=== PATIENT | female | born 1950 | race Caucasian/White ===

== ENCOUNTER 2017-03-22 14:52 | Inpatient (IN) | payer MEDICARE ==
[2017-03-22] MEDS ORDERED: NS 0.9% 1000 ML* 1,000 ML IV ONE ×2 (16:03→18:38)
--- NOTE | 2017-03-22 16:36 | RAD ---
Indication: COPD, weakness. 2 views of the chest are reviewed with previous exam dated March 13, 2015. Cardiomegaly is noted. Airspace disease in the left lower lobe is noted. Right lung field is clear. IMPRESSION: Findings consistent with left lower lobe pneumonia. Right lung field is clear.
--- NOTE | 2017-03-22 16:37 | RAD ---
Indication: Weakness. CT of the brain was performed without IV contrast. Ventricular structures are midline. No midline shift is noted. The extra-axial spaces are unremarkable. There is no evidence of intracranial mass or hemorrhage. No other high or low density lesions are identified. Mastoid air cells and paranasal sinuses are unremarkable. IMPRESSION: No intracranial mass or hemorrhage is noted.
[2017-03-22] MEDS ORDERED: Levofloxacin 750 MG IVPREMIX(* 750 MG/150 ML BAG IVPB ONE (17:02)
[2017-03-22 17:24] LABS: Hematocrit 56 % (35-47); Hemoglobin 17.6 g/dl (12.0-16.0); Mean Corpuscular HGB Conc 32 g/dl (31-36); Mean Corpuscular Hemoglobin 28 pg (27-31); Mean Corpuscular Volume 87 fL (80-97); Red Blood Count 6.38 10^6/ul (4.0-5.4); Red Cell Distribution Width 17 % (10.5-15); White Blood Count 14.3 10^3/ul (3.5-10.8)
[2017-03-22 17:33] LABS: Comments Flag Yes
[2017-03-22 17:34] LABS: ALT 11 U/L (7-52); AST 23 U/L (13-39); Add Diff/Slide Review? Slide Review Added; Albumin 3.7 g/dL (3.2-5.2); Alkaline Phosphatase 71 U/L (34-104); Anion Gap 4 mmol/L (2-11); BUN/Creatinine Ratio 23.8 (8-20); Blood Urea Nitrogen 19 mg/dL (6-24); CO2 Carbon Dioxide 32 mmol/L (22-32); Calcium 8.7 mg/dL (8.6-10.3); Chloride 101 mmol/L (101-111); EGFR African American 92.3 (>60); EGFR Non-African American 71.8 (>60); Globulin 2.9 g/dL (2-4); Glucose 84 mg/dL (70-100); Potassium 4.2 mmol/L (3.5-5.0); Sodium 137 mmol/L (133-145); Total Protein 6.6 g/dL (6.4-8.9)
[2017-03-22 17:36] LABS: Troponin I 0.02 ng/mL (<0.04)
[2017-03-22 17:52] LABS: Alcohol < 10 mg/dL (<10)
[2017-03-22 18:17] LABS: Neutrophil % 86 % (38-83); Reactive Lymph % 5 % (0-6)
[2017-03-22 18:18] LABS: Platelet Morphology Large; RBC Morphology Normal (Normal)
[2017-03-22] MEDS ORDERED: Albuterol 2.5 MG/3 ML NEB.SOL* (0.083%) INH PRN (18:44)
[2017-03-22] MEDS ORDERED: NS 0.9% 1000 ML* 2,000 ML IV ONE (18:44)
[2017-03-22] MEDS ORDERED: Ondansetron INJ* 2 MG/ML VIAL IV PRN (18:44)
[2017-03-22] MEDS ORDERED: Acetaminophen TAB* 325 MG PO PRN (18:44)
[2017-03-22] MEDS ORDERED: Dextrose 50% Syringe 50 ML* 25 GM/50 ML SYRINGE IV PUSH PRN (18:44)
[2017-03-22] MEDS ORDERED: NS 0.9% 1000 ML* 1,000 ML IV SCH (18:45)
[2017-03-22 19:15] LABS: FIO2 40
[2017-03-22] MEDS: Albuterol/Ipratropium NEB.SOL* Albuterol 2.5 MG/Ipratropium 0.5 MG 3 ML INH SCH ×2 (19:16→23:55)
[2017-03-22 19:24] LABS: PCO2 Arterial 77 mmHg (35-45)
[2017-03-22] MEDS: methylPREDNISolone 125 MG* 2 ML VIAL IV SCH (20:11)
[2017-03-22 21:20] LABS: Urine Bacteria 2+ (Absent); Urine Bilirubin Negative (Negative); Urine Glucose Negative (Negative); Urine Nitrite Negative (Negative)
[2017-03-22 21:31] LABS: Benzodiazepine Urine Screen None Detected (None Detect)
[2017-03-22] MEDS: Ropinirole TAB* 0.5 MG TAB PO SCH (21:36)
[2017-03-22] MEDS: Atorvastatin* 10 MG TAB PO SCH (21:36)
[2017-03-22] MEDS: Nystatin OINT* 15 GM TOPICAL SCH (21:36)
[2017-03-22] MEDS: Heparin VIAL(*) 5000 UNITS/ML VIAL (FIVE THOUSAND) SUBCUT SCH (21:37)
[2017-03-22 22:47] LABS: EPAP 8; FIO2 60; IPAP 14
[2017-03-22 22:51] LABS: PCO2 Arterial 71 mmHg (35-45)
[2017-03-22] MEDS: Mometasone/Formoter 200/5 MDI INH SCH (23:55)
--- NOTE | 2017-03-23 00:05 | HP ---
CC: Dr. Murphy * HISTORY AND PHYSICAL: DATE OF ADMISSION: 03/22/17 PRIMARY CARE PROVIDER: Dr. Murphy. ATTENDING PHYSICIAN WHILE IN THE HOSPITAL: Brandie Gutierrez DO * (report dictated by Dalton Borrego NP). CHIEF COMPLAINTS: 1. Shortness of breath. 2. Drowsiness. 3. Altered mental status. HISTORY OF PRESENT ILLNESS: Ms. Morris is a 66-year-old female patient. She carries a history of chronic back pain, restless leg syndrome, hypertension, hyperlipidemia, diabetes, COPD, cervical cancer and a history of an CT in the past. She comes in to the ED today stating that over the last 2 days, she has been just feeling more weak. States when she stands up, her legs are just being giving out. She has been feeling drowsy, feeling tired, she has had a cough. She states sometimes it has been hurting when she breathes. She has had some increasing shortness of breath. She is unclear if she has had any fevers or chills. She denies any change in medications. She has been taking her meds as prescribed. She denies that the cough has been productive. The family was concerned and the patient was concerned and they came in to the ER today for evaluation. There has been no recent changes to medications. There has been no reports of weakness to one side, facial drooping, trouble with speech. She has been feeling really tired and weak. She was evaluated by Dr. Plata and it was found that on x-ray, there was concern for pneumonia. She appeared to have an elevated white count, appeared to be dehydrated. We were asked to evaluate for admission. PAST MEDICAL HISTORY: Significant for: 1. Chronic back pain. 2. Restless leg syndrome. 3. Hypertension. 4. Hyperlipidemia. 5. Diabetes. 6. COPD. 7. Cervical cancer. 8. History of CT. PAST SURGICAL HISTORY: 1. She has had a lumbar spine surgery. 2. Cervical diskectomy. 3. x3. 4. Hysterectomy. HOME MEDICATIONS: Include: 1. Zanaflex 2 mg p.o. 4 times a day. 2. Requip 1 mg p.o. daily. 3. Oxycodone 5 mg every 4 to 6 hours as needed. 4. Glucophage 500 mg p.o. b.i.d. 5. Norvasc 5 mg daily. 6. Zocor 20 mg at bedtime. 7. Requip 0.5 mg p.o. t.i.d. 8. Lyrica 150 mg t.i.d. 9. Lisinopril 20 mg daily. 10. Vitamin D 2000 units daily. 11. Aspirin 81 mg daily. 12. DuoNeb 1 neb inhaled 4 times a day. ALLERGIES TO MEDICATIONS: Include LATEX and PENICILLIN. FAMILY HISTORY: Father had a history of COPD. She states to her knowledge, her mother was healthy, passed of old age. SOCIAL HISTORY: She is a half a pack a day smoker. She smoked for about 50 years. She does not drink alcohol. Surrogate decision maker is her daughter. REVIEW OF SYSTEMS: There is no documented fever. Denied any significant weight change. There was no double vision. Denied having any ear discharge. No rhinorrhea. No sore throat, no thyroid enlargement. Denied any chest pain at this point. She does state it sometimes hurts when she takes a deep breath. She does state that she has been feeling little bit more short of breath. Denies having any abdominal pain. Denies having any nausea or vomiting. No dysuria, no frequency. There has been no seizure. No loss of consciousness. No pruritus and no skin ulcerations. Review of 14 systems completed, all others negative. PHYSICAL EXAMINATION GENERAL: At this time, Ms. Morris is a 66-year-old female patient. She is morbidly obese. She is sitting on the ER stretcher. She does not appear to be in any acute distress. VITAL SIGNS: Blood pressure 107/87, pulse 84, respirations were noted to be 16 , her O2 sat was 89%; but on 6 L, she is hovering right around between 93% and 92%. HEENT: Head: Atraumatic, normocephalic. Eyes: EOMs intact. Sclerae were anicteric. Pupils are equal and reactive to light. Throat: Oral mucosa appears to be dry. No oropharyngeal erythema. NECK: Supple. LUNGS: Diminished throughout. She had some rhonchi in the upper lobe. Equal diaphragmatic expansion. HEART: Sounds S1, S2. Regular rate and rhythm. No murmurs, rubs, or gallops. ABDOMEN: Soft, flat, nontender. Bowel sounds present. EXTREMITIES: Pulses 2+ throughout. No peripheral edema. She had 5/5 strength. NEUROLOGIC: She will awaken to her name. She is drowsy. She falls back to sleep quickly. Her speech was clear. She is awake. She knows she is in the hospital. She knows the month and she knows her name. Her biochemical engineer were equal. Tongue was midline. She had no facial drooping. She had no gross obvious focal deficits. SKIN: Intact. DIAGNOSTIC STUDIES/LAB DATA: Revealed WBC of 14.3, RBC of 6.38, hemoglobin 17.6, hematocrit 56, and platelet count 148. INR 0.97. Sodium 137, potassium 4.2, chloride of 101, bicarb 32, BUN 19, creatinine 0.80. Glucose 84, lactic 1.3, calcium 8.7. Total bili 0.5, AST 23, ALT 11, alk phos 71. Troponin 0.02. Albumin 3.7. Toxicology negative. The patient did have a brain CT, showed no intracranial mass or hemorrhage is evident. She had a chest x-ray today. Under my impression, she did have a significant pneumonia on the left side. Radiology read it as findings consistent with left lower lobe pneumonia. Right lung field clear. EKG obtained today shows a sinus rhythm, rate of 78. No ST elevations or T- wave inversions. Old medical records were reviewed. ASSESSMENT AND PLAN: Ms. Morris is a 66-year-old female patient coming in to the ER today with complaints of cough, complaints of weakness, on evaluation found to appear to have pneumonia. She will be admitted under inpatient status for: 1. Sepsis secondary to pneumonia. At this point, I will check a flu swab. We will get legionella antigen and strep pneumo antigen if possible. We will go ahead and put her on nebs standing. I will place her on p.r.n. nebs as well as steroids. I did place her on Dulera in addition to this. I will order flutter valve and we will continue to follow her closely and put her on Levaquin. We did get blood cultures. I suspect the altered mental status is related to the pneumonia, but I would like to check an ABG as well to make sure she is ventilating appropriately. Again, she got 2 L of fluids here in the ED. I will continue maintenance fluids. She did appear to be dehydrated on exam. We will continue to follow. 2. Chronic pain. I am holding her medications as she is fairly drowsy on my exam today and she is falling asleep quite easily. We will follow. 3. Restless legs. We will continue her Requip. 4. Hypertension. Holding her meds in the setting of acute illness. Blood pressures have been on the soft side. We can restart these when able. 5. Hyperlipidemia. Continue statin therapy. 6. Diabetes. Lispro sliding scale. 7. Chronic obstructive pulmonary disease with exacerbation. She will be on nebs, steroids, pulmonary toileting. 8. Cervical cancer. Follow with the primary. 9. History of myocardial infarction. Continue statin and aspirin. 10. Code status. She is a DNR with trial of intubation. TIME SPENT: Time spent on the admission was approximately 70 minutes, greater than half the time was spent [id number] with the patient obtaining my history and physical, other half time was spent going over the plan of care and implementing plan of care. I did discuss the plan of care with my attending, Dr. Gutierrez, she is in agreement. DALTON BORREGO, FAVIOLA [id number]/CPS #: [id number] SHEREEN
[2017-03-23] MEDS: Albuterol/Ipratropium NEB.SOL* Albuterol 2.5 MG/Ipratropium 0.5 MG 3 ML INH SCH ×6 (06:00→23:50)
[2017-03-23] MEDS: Heparin VIAL(*) 5000 UNITS/ML VIAL (FIVE THOUSAND) SUBCUT SCH ×3 (06:21→20:35)
[2017-03-23] MEDS: methylPREDNISolone 125 MG* 2 ML VIAL IV SCH ×2 (06:21→20:33)
[2017-03-23 07:03] LABS: Blood Urea Nitrogen 14 mg/dL (6-24); CO2 Carbon Dioxide 30 mmol/L (22-32); Calcium 8.4 mg/dL (8.6-10.3); Chloride 105 mmol/L (101-111); EGFR African American 139.3 (>60); EGFR Non-African American 108.3 (>60); Glucose 127 mg/dL (70-100); Sodium 138 mmol/L (133-145)
[2017-03-23 07:06] LABS: Anion Gap 3 mmol/L (2-11)
[2017-03-23 07:09] LABS: Hematocrit 55 % (35-47); Hemoglobin 17.2 g/dl (12.0-16.0); Mean Corpuscular HGB Conc 31 g/dl (31-36); Mean Corpuscular Hemoglobin 27 pg (27-31); Mean Corpuscular Volume 86 fL (80-97); Mean Platelet Volume 10 um3 (7.4-10.4); Red Blood Count 6.38 10^6/ul (4.0-5.4); Red Cell Distribution Width 17 % (10.5-15)
[2017-03-23 07:10] LABS: Add Diff/Slide Review? Slide Review Added; Comments Flag Yes
[2017-03-23] MEDS: Insulin LISPRO* 1 UNITS UNIT SUBCUT SCH ×3 (08:10→18:18)
[2017-03-23] MEDS: Nystatin OINT* 15 GM TOPICAL SCH ×4 (08:11→20:49)
--- NOTE | 2017-03-23 08:41 | ED ---
Morro Giordano Angela, scribed for Yobany Plata MD on 03/22/17 at 1604 . Adult Trauma - HPI Summary HPI Summary: This pt is a 66 y/o female presenting to [facility] c/o recent frequent falls and weakness x2 weeks, fall today. Pt reports that over the past 2 weeks pt has fallen about 6 times. Pt states that today she fell and she hit her face on a coffee table. Pt denies LOC or syncope. She states that over the last several days, pt has noticed she has been dropping everything. Pt takes oxycodone TID for her chronic back pain. Pt notes she has a productive cough. Pt denies fever , chills, chest pain, SOB, dysuria, diarrhea, constipation. - History of Current Complaint Chief Complaint: EDWeakness Stated Complaint: WEAKNESS Time Seen by Provider: 03/22/17 15:08 Hx Obtained From: Patient Hx Last Menstrual Period: Years ago. Mechanism of Injury: Fall Ambulatory at the Scene: Yes Loss of Consciousness: no loss of consciousness Pain Intensity: 0 Location: Other - face Character: Aching Aggravating Factor(s): Nothing Alleviating Factor(s): Nothing Associated Signs & Symptoms: Positive: Cough, Numbness/Weakness - generalized weakness, Other: - chronic back pain. Negative: SOB, Chest Pain, Abdominal Pain , Fever, Nausea/Vomiting, Loss of Consciousness - Additional Pertinent History Primary Care Physician: [id number] - Allergy/Home Medications Allergies/Adverse Reactions: Allergies Allergy/AdvReac Type Severity Reaction Status Date / Time Latex Allergy Intermediate hands Verified 05/03/16 12:26 swell up Penicillins Allergy Intermediate Hives Verified 05/03/16 12:26 Home Medications: Home Medications Cholecalciferol TAB* [Vitamin D TAB*] 2,000 units PO DAILY 03/22/17 [History Confirmed 03/22/17] Pregabalin CAP(*) [Lyrica CAP(*)] 150 mg PO TID 03/22/17 [History Confirmed ] Ropinirole TAB* [Requip TAB*] 0.5 mg PO TID 03/22/17 [History Confirmed 03/22/17 ] Simvastatin TAB(NF) [Zocor(NF)] 20 mg PO BEDTIME 03/22/17 [History Confirmed ] rOPINIRole TAB* [Requip TAB*] 1 mg PO DAILY 03/22/17 [History Confirmed 03/22/17 ] tiZANidine TAB* [Zanaflex TAB*] 2 mg PO QID 03/22/17 [History Confirmed 03/22/17 ] PMH/Surg Hx/FS Hx/Imm Hx Endocrine/Hematology History: Reports: Hx Anticoagulant Therapy - ASA, Hx Diabetes - TYPE 2 Denies: Hx Thyroid Disease Cardiovascular History: Reports: Hx Hypercholesterolemia, Hx Hypertension, Other Cardiovascular Problems/Disorders - CHOLESTEROL CONTROL WITH MED Denies: Hx Congestive Heart Failure, Hx Deep Vein Thrombosis, Hx Myocardial Infarction, Hx Pacemaker/ICD Respiratory History: Reports: Hx Asthma, Hx Chronic Obstructive Pulmonary Disease (COPD), Hx Pneumonia - March 2015. , Other Respiratory Problems/ Disorders - HX OF PNEUMONIA 03/2015 Denies: Hx Lung Cancer GI History: Reports: Other GI Disorders - HX OF POLYPS Denies: Hx Gall Bladder Disease, Hx Gastrointestinal Bleed, Hx Ulcer, Hx Urosepsis History: Denies: Hx Dialysis, Hx Kidney Stones, Hx Renal Disease Musculoskeletal History: Reports: Hx Arthritis - SPINE,, Hx Back Problems - chronic back pain, Other Musculoskeletal History - BACK SURGERY X 3, CERVICAL X 1 Sensory History: Reports: Hx Contacts or Glasses - GLASSES Denies: Hx Hearing Aid Opthamlomology History: Reports: Hx Contacts or Glasses - GLASSES Neurological History: Reports: Other Neuro Impairments/Disorders - RESTLESS LEG SYNDROME Denies: Hx Dementia, Hx Migraine, Hx Seizures, Hx Transient Ischemic Attacks (TIA) Psychiatric History: Reports: Hx Anxiety - REGARDING SURGERY - AND NOT WAKING UP Denies: Hx Depression, Hx Panic Disorder, Hx Schizophrenia, Hx Bipolar Disorder - Cancer History Cancer Type, Location and Year: CERVICAL CA 1979 Hx Chemotherapy: No Hx Radiation Therapy: No - Surgical History Surgery Procedure, Year, and Place: 1979 OOPHORECTOMY (UNSURE WHICH ONE), [facility]. 1987 HYSTERECTOMY, [facility]. 1968, 1970, 1972 3 CSECTIONS, [facility]. 1986, 2001, 2014 3 BACK SURGERIES, [facility]. 2007 ACDF C5-7, [facility], Hx Anesthesia Reactions: No Infectious Disease History: No Infectious Disease History: Denies: Traveled Outside the [place] in Last 30 Days - Family History Family History: father - heart disease, mother - [place] - Social History Alcohol Use: None Substance Use Type: Reports: None, Prescribed Smoking Status (MU): Light Every Day Tobacco Smoker Type: Cigarettes Amount Used/How Often: 5 - 6 CIG/DAY FOR APPROX 44 YEARS Length of Time of Smoking/Using Tobacco: 44 YEARS Have You Smoked in the Last Year: Yes Review of Systems Positive: Other - fall. Negative: Fever, Chills Negative: Chest Pain Positive: Cough - productive. Negative: Shortness Of Breath Negative: Diarrhea, Other - constipation Negative: dysuria Positive: Other - chronic back pain Positive: Weakness. Negative: Syncope - or LOC All Other Systems Reviewed And Are Negative: Yes Physical Exam - Summary Physical Exam Summary: VITAL SIGNS: Reviewed. GENERAL: Patient is a well-developed and nourished female who is lying comfortable in the stretcher. Patient is not in any acute respiratory distress. Pt is able to answer questions properly when verbally stimulated. Pt is currently on oxygen and looks dehydrated. HEAD AND FACE: No signs of trauma. No ecchymosis, hematomas or skull depressions. No sinus tenderness. EYES: PERRLA, EOMI x 2, No injected conjunctiva, no nystagmus. EARS: Hearing grossly intact. Ear canals and tympanic membranes are within normal limits. MOUTH: Oropharynx within normal limits. NECK: Supple, trachea is midline, no adenopathy, no JVD, no carotid bruit, no c- spine tenderness, neck with full ROM. CHEST: Symmetric, no tenderness at palpation LUNGS: Clear to auscultation bilaterally. No wheezing or crackles. CVS: Regular rate and rhythm, S1 and S2 present, no murmurs or gallops appreciated. ABDOMEN: Soft, non-tender. No signs of distention. No rebound no guarding, and no masses palpated. Bowel sounds are normal. EXTREMITIES: FROM in all major joints, no edema, no cyanosis or clubbing. NEURO: Alert and oriented x 3. No acute neurological deficits. Speech is normal and follows commands. SKIN: Dry and warm GCS: 15 Triage Information Reviewed: Yes Vital Signs On Initial Exam: Initial Vitals Temp Pulse Resp BP Pulse Ox 98.7 F 94 22 115/55 90 03/22/17 15:10 03/22/17 15:10 03/22/17 15:10 03/22/17 15:10 03/22/17 15:10 Vital Signs Reviewed: Yes - [place] Coma Scale Coma Scale Total: 15 Diagnostics - Vital Signs Vital Signs Temp Pulse Resp BP Pulse Ox 03/22/17 15:15 95 93 03/22/17 15:14 115/55 03/22/17 15:10 98.7 F 94 22 115/55 90 - Laboratory Lab Results: Lab Results 03/22/17 03/22/17 03/22/17 Range/Units 17:05 17:05 17:05 WBC 14.3 H (3.5-10.8) 10^3/ul RBC 6.38 H (4.0-5.4) 10^6/ul Hgb 17.6 H (12.0-16.0) g/dl Hct 56 H (35-47) % MCV 87 (80-97) fL MCH 28 (27-31) pg MCHC 32 (31-36) g/dl RDW 17 H (10.5-15) % Plt Count 145 L (150-450) 10^3/ul MPV Not Reportable Neut % (Auto) 79.8 (38-83) % Lymph % (Auto) 11.1 L (25-47) % Nobles % (Auto) 8.6 (1-9) % Eos % (Auto) 0.2 (0-6) % Baso % (Auto) 0.3 (0-2) % Absolute Neuts (auto) 11.4 H (1.5-7.7) 10^3/ul Absolute Lymphs (auto) 1.6 (1.0-4.8) 10^3/ul Absolute Monos (auto) 1.2 H (0-0.8) 10^3/ul Absolute Eos (auto) 0 (0-0.6) 10^3/ul Absolute Basos (auto) 0 (0-0.2) 10^3/ul Absolute Nucleated RBC 0.04 10^3/ul Neutrophils % 86 H (38-83) % Lymphocytes % 4 L (25-47) % Reactive Lymphs % 5 (0-6) % Monocytes % 5 (0-13) % Nucleated RBC % 0.3 Platelet Morphology Large Normal RBC Morphology Normal (Normal) INR (Anticoag Therapy) 0.97 (0.89-1.11) Sodium 137 (133-145) mmol/L Potassium 4.2 (3.5-5.0) mmol/L Chloride 101 (101-111) mmol/L Carbon Dioxide 32 (22-32) mmol/L Anion Gap 4 (2-11) mmol/L BUN 19 (6-24) mg/dL Creatinine 0.80 (0.51-0.95) mg/dL Est GFR ( Amer) 92.3 (>60) Est GFR (Non-Af Amer) 71.8 (>60) BUN/Creatinine Ratio 23.8 H (8-20) Glucose 84 (70-100) mg/dL Lactic Acid (0.5-2.0) mmol/L Calcium 8.7 (8.6-10.3) mg/dL Total Bilirubin 0.50 (0.2-1.0) mg/dL AST 23 (13-39) U/L ALT 11 (7-52) U/L Alkaline Phosphatase 71 (34-104) U/L Troponin I 0.02 (<0.04) ng/mL Total Protein 6.6 (6.4-8.9) g/dL Albumin 3.7 (3.2-5.2) g/dL Globulin 2.9 (2-4) g/dL Albumin/Globulin Ratio 1.3 (1-3) Serum Alcohol < 10 (<10) mg/dL 03/22/17 Range/Units 17:05 WBC (3.5-10.8) 10^3/ul RBC (4.0-5.4) 10^6/ul Hgb (12.0-16.0) g/dl Hct (35-47) % MCV (80-97) fL MCH (27-31) pg MCHC (31-36) g/dl RDW (10.5-15) % Plt Count (150-450) 10^3/ul MPV Neut % (Auto) (38-83) % Lymph % (Auto) (25-47) % Nobles % (Auto) (1-9) % Eos % (Auto) (0-6) % Baso % (Auto) (0-2) % Absolute Neuts (auto) (1.5-7.7) 10^3/ul Absolute Lymphs (auto) (1.0-4.8) 10^3/ul Absolute Monos (auto) (0-0.8) 10^3/ul Absolute Eos (auto) (0-0.6) 10^3/ul Absolute Basos (auto) (0-0.2) 10^3/ul Absolute Nucleated RBC 10^3/ul Neutrophils % (38-83) % Lymphocytes % (25-47) % Reactive Lymphs % (0-6) % Monocytes % (0-13) % Nucleated RBC % Platelet Morphology Normal RBC Morphology (Normal) INR (Anticoag Therapy) (0.89-1.11) Sodium (133-145) mmol/L Potassium (3.5-5.0) mmol/L Chloride (101-111) mmol/L Carbon Dioxide (22-32) mmol/L Anion Gap (2-11) mmol/L BUN (6-24) mg/dL Creatinine (0.51-0.95) mg/dL Est GFR ( Amer) (>60) Est GFR (Non-Af Amer) (>60) BUN/Creatinine Ratio (8-20) Glucose (70-100) mg/dL Lactic Acid 1.3 (0.5-2.0) mmol/L Calcium (8.6-10.3) mg/dL Total Bilirubin (0.2-1.0) mg/dL AST (13-39) U/L ALT (7-52) U/L Alkaline Phosphatase (34-104) U/L Troponin I (<0.04) ng/mL Total Protein (6.4-8.9) g/dL Albumin (3.2-5.2) g/dL Globulin (2-4) g/dL Albumin/Globulin Ratio (1-3) Serum Alcohol (<10) mg/dL Result Diagrams: 03/23/17 06:34 03/23/17 06:34 Lab Statement: Any lab studies that have been ordered have been reviewed, and results considered in the medical decision making process. - Radiology Chest XR Xray Interpretation: Positive (See Comments) - IMPRESSION: findings consistent with left lower lobe pneumonia. Right lung field is clear. ED physician has reviewed this radiology report and agrees. Radiology Interpretation Completed By: Radiologist - CT Brain CT CT Interpretation: No Acute Changes - IMPRESSION: No intracranial mass or hemorrhage is noted. ED physician has reviewed this radiology report and agrees. CT Interpretation Completed By: Radiologist - EKG 1632 Cardiac Rate: NL - 78 bpm EKG Rhythm: Sinus Rhythm EKG Interpretation: No ST elevation EKG Comparison: No Significant Change - from prior EKG on 03/13/15. Adult Trauma Course/Dx - Course Assessment/Plan: This pt is a 66 y/o female presenting to [facility] c/o recent frequent falls and weakness x2 weeks, fall today. Pt reports that over the past 2 weeks pt has fallen about 6 times. Pt states that today she fell and she hit her face on a coffee table. Pt denies LOC or syncope. She states that over the last several days, pt has noticed she has been dropping everything. Pt takes oxycodone TID for her chronic back pain. Pt notes she has a productive cough. Pt denies fever, chills, chest pain, SOB, dysuria, diarrhea, constipation. Test results show WBC of 14.3, H&H of 17.6/56. CMP within normal limits. Chest XR shows findings consistent with left lower lobe pneumonia. Right lung field is clear. Head CT reveals no intracranial mass or hemorrhage is noted. In the ED course, the pt was given IV fluids since she seems dehydrated. She was started on Levaquin for pneumonia. I believe she has lethargy since she is taking too many pain medications. However, at this point she is unable to give us urine as she is dehydrated. I discussed the case with Dr. Kovacs, who accepted the pt for admission. Pt is hemodynamically stable, alert and oriented x3. - Diagnoses Provider Diagnoses: Pneumonia, Altered mental status, Dehydration - Physician Notifications Discussed Care Of Patient With: Gela Kovacs Time Discussed With Above Provider: 18:12 Instructed by Provider To: Other - I discussed pt care with Dr. Kovacs. She has agreed to admit the pt. Discharge - Discharge Plan Condition: Stable Disposition: ADMITTED TO [facility] documentation as recorded by the Morro sanchez Angela accurately reflects the service I personally performed and the decisions made by me, Yobany Plata MD.
[2017-03-23] MEDS: Aspirin EC Low Dose* 81 MG TAB.EC PO SCH (08:56)
[2017-03-23] MEDS: Ropinirole TAB* 0.5 MG TAB PO SCH ×3 (09:31→20:48)
[2017-03-23] MEDS: Mometasone/Formoter 200/5 MDI INH SCH ×3 (10:43→20:01)
[2017-03-23] MEDS ORDERED: oxyCODONE TAB* 5 MG TAB PO SCH (11:00)
[2017-03-23] MEDS: oxyCODONE TAB* 5 MG TAB PO PRN ×2 (12:00→18:24)
--- NOTE | 2017-03-23 17:54 | PN ---
Subjective Date of Service: 03/23/17 Interval History: Pt did not like bipap overnight. Hernandez was placed for difficulty urinating and bladder scan ~200cc. Down to 3.5L. Transferring to floor. Objective Active Medications: Acetaminophen (Tylenol Tab*) 650 mg PO Q4H PRN PRN Reason: FEVER/PAIN Albuterol (Ventolin 2.5 Mg/3 Ml Neb.Analilia*) 2.5 mg INH Q2H PRN PRN Reason: SOB/WHEEZING Albuterol/Ipratropium (Duoneb (Albuterol 2.5 Mg/Ipratropium 0.5 Mg)) 1 neb INH [id number] Last Admin: 03/23/17 15:40 Dose: Not Given Aspirin (Aspirin Ec Low Dose*) 81 mg PO QAM [facility] Last Admin: 03/23/17 08:56 Dose: 81 mg Atorvastatin Calcium (Lipitor*) 10 mg PO BEDTIME [facility] Last Admin: 03/22/17 21:36 Dose: 10 mg Dextrose (D50w Syringe 50 Ml*) 12.5 gm IV PUSH .FOR FS < 60 - SS PRN PRN Reason: FS < 60 Heparin Sodium (Porcine) (Heparin Vial(*)) 5,000 units SUBCUT Q8HR [facility] Last Admin: 03/23/17 14:16 Dose: 5,000 units Levofloxacin/Dextrose (Levaquin 750 Mg Ivpremix(*)) 750 mg in 150 mls @ 100 mls /hr IVPB Q24H [facility] Influenza Virus Vaccine (Fluarix *Quad* *) 0.5 ml IM .ONCE ONE Stop: 03/24/17 09:01 Insulin Human Lispro (Humalog*) 0 units SUBCUT AC [facility] PRN Reason: Protocol Last Admin: 03/23/17 11:59 Dose: 6 units Methylprednisolone Sodium Succinate (Solu-Medrol 125mg *) 60 mg IV Q12H [facility] Last Admin: 03/23/17 06:21 Dose: 60 mg Mometasone Furoate/Formoterol Fumar (Dulera 200/5 Mdi*) 2 puff INH BID [facility] Last Admin: 03/23/17 10:43 Dose: 2 puff Nystatin (Nystatin Oint*) 1 applic TOPICAL TID [facility] Last Admin: 03/23/17 14:09 Dose: Not Given Ondansetron HCl (Zofran Inj*) 4 mg IV Q6H PRN PRN Reason: NAUSEA Oxycodone HCl (Roxycodone Tab*) 5 mg PO Q6H PRN PRN Reason: NOT SPECIFIED Last Admin: 03/23/17 12:00 Dose: 5 mg Ropinirole HCl (Requip Tab*) 0.5 mg PO TID [facility] Last Admin: 03/23/17 14:16 Dose: 0.5 mg Vital Signs 03/22/17 03/22/17 03/22/17 18:30 19:00 19:17 Temperature Pulse Rate 85 78 86 Respiratory 20 21 Rate Blood Pressure 110/72 138/64 (mmHg) O2 Sat by Pulse 92 93 93 Oximetry 03/22/17 03/22/17 03/22/17 19:19 19:29 19:30 Temperature 98.7 F Pulse Rate 81 83 Respiratory 22 20 Rate Blood Pressure 118/41 118/41 (mmHg) O2 Sat by Pulse 93 95 95 Oximetry 03/22/17 03/22/17 03/22/17 19:45 19:56 20:00 Temperature 99 F Pulse Rate 102 98 89 Respiratory 24 20 18 Rate Blood Pressure 121/85 128/65 (mmHg) O2 Sat by Pulse 90 88 86 Oximetry 03/22/17 03/22/17 03/22/17 20:07 20:15 20:30 Temperature Pulse Rate 95 86 77 Respiratory 13 19 18 Rate Blood Pressure 109/63 115/54 (mmHg) O2 Sat by Pulse 91 92 93 Oximetry 03/22/17 03/22/17 03/22/17 20:45 21:00 21:01 Temperature Pulse Rate 83 82 82 Respiratory 15 23 24 Rate Blood Pressure 136/63 132/56 (mmHg) O2 Sat by Pulse 95 92 92 Oximetry 03/22/17 03/22/17 03/22/17 21:16 21:18 21:46 Temperature Pulse Rate 81 77 Respiratory 21 19 Rate Blood Pressure 110/69 127/58 (mmHg) O2 Sat by Pulse 91 92 94 Oximetry 03/22/17 03/22/17 03/22/17 22:00 22:01 22:15 Temperature Pulse Rate 78 81 Respiratory 22 23 22 Rate Blood Pressure 124/69 142/80 (mmHg) O2 Sat by Pulse 92 93 Oximetry 03/22/17 03/22/17 03/22/17 22:17 22:31 22:43 Temperature 99.1 F Pulse Rate 79 78 86 Respiratory 23 26 29 Rate Blood Pressure 144/76 (mmHg) O2 Sat by Pulse 92 93 92 Oximetry 03/22/17 03/22/17 03/22/17 22:46 23:00 23:01 Temperature 99.3 F 99.3 F Pulse Rate 79 76 Respiratory 13 19 18 Rate Blood Pressure 143/74 136/67 (mmHg) O2 Sat by Pulse 92 93 Oximetry 03/22/17 03/22/17 03/22/17 23:15 23:30 23:46 Temperature 99.1 F 99.1 F 99.0 F Pulse Rate 75 76 72 Respiratory 18 20 21 Rate Blood Pressure 127/73 142/70 132/71 (mmHg) O2 Sat by Pulse 93 93 93 Oximetry 03/23/17 03/23/17 03/23/17 00:00 00:16 00:30 Temperature 99.0 F 99.0 F 99.0 F Pulse Rate 79 73 74 Respiratory 21 19 23 Rate Blood Pressure 136/64 129/69 143/70 (mmHg) O2 Sat by Pulse 93 91 92 Oximetry 03/23/17 03/23/17 03/23/17 00:46 01:00 01:11 Temperature 98.8 F 99.0 F Pulse Rate 84 78 Respiratory 16 16 19 Rate Blood Pressure 147/77 125/59 (mmHg) O2 Sat by Pulse 91 93 Oximetry 03/23/17 03/23/17 03/23/17 02:00 03:00 04:00 Temperature 98.8 F 98.8 F 98.8 F Pulse Rate 73 79 76 Respiratory 18 21 24 Rate Blood Pressure 133/80 127/58 113/62 (mmHg) O2 Sat by Pulse 93 96 94 Oximetry 03/23/17 03/23/17 03/23/17 05:00 05:23 06:00 Temperature 98.8 F Pulse Rate 90 75 Respiratory 21 23 22 Rate Blood Pressure 122/55 (mmHg) O2 Sat by Pulse 97 95 Oximetry 03/23/17 03/23/17 03/23/17 06:02 07:00 07:49 Temperature 99.0 F 98.8 F Pulse Rate 88 69 Respiratory 18 23 20 Rate Blood Pressure 138/69 146/77 (mmHg) O2 Sat by Pulse 98 98 Oximetry 03/23/17 03/23/17 03/23/17 08:00 09:00 09:01 Temperature 99.0 F 99.1 F 99.1 F Pulse Rate 70 78 92 Respiratory 19 15 29 Rate Blood Pressure 155/91 (mmHg) O2 Sat by Pulse 98 89 89 Oximetry 03/23/17 03/23/17 03/23/17 10:00 10:01 10:44 Temperature 99.1 F 99.1 F Pulse Rate 88 97 70 Respiratory 13 12 20 Rate Blood Pressure 165/80 (mmHg) O2 Sat by Pulse 89 86 92 Oximetry 03/23/17 03/23/17 03/23/17 10:46 10:47 11:00 Temperature 99.3 F Pulse Rate 70 78 Respiratory 18 Rate Blood Pressure (mmHg) O2 Sat by Pulse 92 92 83 Oximetry 03/23/17 03/23/17 03/23/17 11:01 11:28 12:00 Temperature 99.3 F Pulse Rate 82 90 Respiratory 20 Rate Blood Pressure 155/70 (mmHg) O2 Sat by Pulse 84 88 Oximetry 03/23/17 03/23/17 03/23/17 12:01 12:33 13:00 Temperature 99.1 F Pulse Rate 89 72 Respiratory 19 Rate Blood Pressure 164/92 (mmHg) O2 Sat by Pulse 88 87 Oximetry 03/23/17 03/23/17 13:01 15:38 Temperature 98.5 F Pulse Rate 81 68 Respiratory 24 18 Rate Blood Pressure 126/55 140/55 (mmHg) O2 Sat by Pulse 88 88 Oximetry Oxygen Devices in Use Now: Nasal Cannula Appearance: NAD, Ears/Nose/Mouth/Throat: NL Teeth, Lips, Gums, Mucous Membranes Moist Neck: NL Appearance and Movements; NL JVP Respiratory: Symmetrical Chest Expansion and Respiratory Effort, - - slight expiraroy wheeze, no rales or rhonchi appreciated. Abdominal: NL Sounds; No Tenderness; No Distention Extremities: No Edema, No Clubbing, Cyanosis Skin: No Rash or Ulcers, No Nodules or Sclerosis Neurological: Alert and Oriented x 3 Result Diagrams: 03/23/17 06:34 03/23/17 09:27 Additional Lab and Data: Laboratory Results - last 24 hr 03/22/17 03/22/17 03/22/17 17:05 17:05 19:10 WBC RBC Hgb Hct MCV MCH MCHC RDW Plt Count 145 L MPV Not Reportable Neut % (Auto) Lymph % (Auto) [place] % (Auto) Eos % (Auto) Baso % (Auto) Absolute Neuts (auto) Absolute Lymphs (auto) Absolute Monos (auto) Absolute Eos (auto) Absolute Basos (auto) Absolute Nucleated RBC Neutrophils % 86 H Lymphocytes % 4 L Reactive Lymphs % 5 Monocytes % 5 Nucleated RBC % Platelet Morphology Large Normal RBC Morphology Normal INR (Anticoag Therapy) Patient Temperature Not Reportable ABG pH 7.25 L ABG pH (Temp Correct) Not Reportable ABG pCO2 77 H* ABG pCO2 (Temp Corrct Not Reportable ABG pO2 52 L* ABG pO2 (Temp Correct Not Reportable ABG HCO3 26.7 ABG O2 Saturation 91.5 L ABG Base Excess 3.1 H Respiration Rate Not Reportable O2 Delivery Device nasal cannula Ventilator Type Not Reportable Vent Mode Not Reportable FiO2 40 Inspiratory Time Not Reportable PEEP Not Reportable Pressure Support Not Reportable Pressure Control Not Reportable EPAP Not Reportable IPAP Not Reportable BiPAP Not Reportable Sodium Potassium Chloride Carbon Dioxide Anion Gap BUN Creatinine Est GFR ( Amer) Est GFR (Non-Af Amer) BUN/Creatinine Ratio Glucose POC Glucose (mg/dL) Lactic Acid Calcium Urine Color Urine Appearance Urine pH Ur Specific Gre[place] Urine Protein Urine Ketones Urine Blood Urine Nitrate Urine Bilirubin Urine Urobilinogen Ur Leukocyte Esterase Urine WBC (Auto) Urine RBC (Auto) Urine Bacteria Hyaline Casts Urine Glucose Urine Opiates Screen Ur Barbiturates Screen Ur Phencyclidine Scrn Ur Amphetamines Screen U Benzodiazepines Scrn Urine Cocaine Screen U Cannabinoids Screen Serum Alcohol < 10 Influenza A (Rapid) Influenza B (Rapid) 03/22/17 03/22/17 03/22/17 19:19 20:40 21:00 WBC RBC Hgb Hct MCV MCH MCHC RDW Plt Count MPV Neut % (Auto) Lymph % (Auto) [place] % (Auto) Eos % (Auto) Baso % (Auto) Absolute Neuts (auto) Absolute Lymphs (auto) Absolute Monos (auto) Absolute Eos (auto) Absolute Basos (auto) Absolute Nucleated RBC Neutrophils % Lymphocytes % Reactive Lymphs % Monocytes % Nucleated RBC % Platelet Morphology Normal RBC Morphology INR (Anticoag Therapy) Patient Temperature ABG pH ABG pH (Temp Correct) ABG pCO2 ABG pCO2 (Temp Corrct ABG pO2 ABG pO2 (Temp Correct ABG HCO3 ABG O2 Saturation ABG Base Excess Respiration Rate O2 Delivery Device Ventilator Type Vent Mode FiO2 Inspiratory Time PEEP Pressure Support Pressure Control EPAP IPAP BiPAP Sodium Potassium Chloride Carbon Dioxide Anion Gap BUN Creatinine Est GFR ( Amer) Est GFR (Non-Af Amer) BUN/Creatinine Ratio Glucose POC Glucose (mg/dL) Lactic Acid 0.9 Calcium Urine Color Urine Appearance Urine pH Ur Specific Greig Urine Protein Urine Ketones Urine Blood Urine Nitrate Urine Bilirubin Urine Urobilinogen Ur Leukocyte Esterase Urine WBC (Auto) Urine RBC (Auto) Urine Bacteria Hyaline Casts Urine Glucose Urine Opiates Screen Presumptive positive H Ur Barbiturates Screen None detected Ur Phencyclidine Scrn None detected Ur Amphetamines Screen None detected U Benzodiazepines Scrn None detected Urine Cocaine Screen None detected U Cannabinoids Screen None detected Serum Alcohol Influenza A (Rapid) Negative Influenza B (Rapid) Negative 03/22/17 03/22/17 03/23/17 21:00 22:41 06:34 WBC 12.0 H RBC 6.38 H Hgb 17.2 H Hct 55 H MCV 86 MCH 27 MCHC 31 RDW 17 H Plt Count 145 L MPV 10 Neut % (Auto) 90.1 H Lymph % (Auto) 6.5 L [place] % (Auto) 3.3 Eos % (Auto) 0 Baso % (Auto) 0.1 Absolute Neuts (auto) 10.8 H Absolute Lymphs (auto) 0.8 L Absolute Monos (auto) 0.4 Absolute Eos (auto) 0 Absolute Basos (auto) 0 Absolute Nucleated RBC 0.03 Neutrophils % Lymphocytes % Reactive Lymphs % Monocytes % Nucleated RBC % 0.2 Platelet Morphology Normal RBC Morphology INR (Anticoag Therapy) Patient Temperature Not Reportable ABG pH 7.27 L ABG pH (Temp Correct) Not Reportable ABG pCO2 71 H ABG pCO2 (Temp Corrct Not Reportable ABG pO2 57 L* ABG pO2 (Temp Correct Not Reportable ABG HCO3 26.5 ABG O2 Saturation 92.7 L ABG Base Excess 2.6 H Respiration Rate Not Reportable O2 Delivery Device bipap Ventilator Type Not Reportable Vent Mode s/t FiO2 60 Inspiratory Time Not Reportable PEEP Not Reportable Pressure Support Not Reportable Pressure Control Not Reportable EPAP 8 IPAP 14 BiPAP Not Reportable Sodium Potassium Chloride Carbon Dioxide Anion Gap BUN Creatinine Est GFR ( Amer) Est GFR (Non-Af Amer) BUN/Creatinine Ratio Glucose POC Glucose (mg/dL) Lactic Acid Calcium Urine Color Yellow Urine Appearance Clear Urine pH 5.0 Ur Specific [place] 1.016 Urine Protein 1+(30 mg/dl) H Urine Ketones Trace H Urine Blood Negative Urine Nitrate Negative Urine Bilirubin Negative Urine Urobilinogen Negative Ur Leukocyte Esterase Negative Urine WBC (Auto) Trace(0-5/hpf) Urine RBC (Auto) Absent Urine Bacteria 2+ H Hyaline Casts Present H Urine Glucose Negative Urine Opiates Screen Ur Barbiturates Screen Ur Phencyclidine Scrn Ur Amphetamines Screen U Benzodiazepines Scrn Urine Cocaine Screen U Cannabinoids Screen Serum Alcohol Influenza A (Rapid) Influenza B (Rapid) 03/23/17 03/23/17 03/23/17 06:34 06:34 07:20 WBC RBC Hgb Hct MCV MCH MCHC RDW Plt Count MPV Neut % (Auto) Lymph % (Auto) [place] % (Auto) Eos % (Auto) Baso % (Auto) Absolute Neuts (auto) Absolute Lymphs (auto) Absolute Monos (auto) Absolute Eos (auto) Absolute Basos (auto) Absolute Nucleated RBC Neutrophils % Lymphocytes % Reactive Lymphs % Monocytes % Nucleated RBC % Platelet Morphology Normal RBC Morphology INR (Anticoag Therapy) 1.00 Patient Temperature ABG pH ABG pH (Temp Correct) ABG pCO2 ABG pCO2 (Temp Corrct ABG pO2 ABG pO2 (Temp Correct ABG HCO3 ABG O2 Saturation ABG Base Excess Respiration Rate O2 Delivery Device Ventilator Type Vent Mode FiO2 Inspiratory Time PEEP Pressure Support Pressure Control EPAP IPAP BiPAP Sodium 138 Potassium TNP Chloride 105 Carbon Dioxide 30 Anion Gap 3 BUN 14 Creatinine 0.56 Est GFR ( Amer) 139.3 Est GFR (Non-Af Amer) 108.3 BUN/Creatinine Ratio 25.0 H Glucose 127 H POC Glucose (mg/dL) 133 H Lactic Acid Calcium 8.4 L Urine Color Urine Appearance Urine pH Ur Specific [place] Urine Protein Urine Ketones Urine Blood Urine Nitrate Urine Bilirubin Urine Urobilinogen Ur Leukocyte Esterase Urine WBC (Auto) Urine RBC (Auto) Urine Bacteria Hyaline Casts Urine Glucose Urine Opiates Screen Ur Barbiturates Screen Ur Phencyclidine Scrn Ur Amphetamines Screen U Benzodiazepines Scrn Urine Cocaine Screen U Cannabinoids Screen Serum Alcohol Influenza A (Rapid) Influenza B (Rapid) 03/23/17 03/23/17 03/23/17 09:27 11:18 16:30 WBC RBC Hgb Hct MCV MCH MCHC RDW Plt Count MPV Neut % (Auto) Lymph % (Auto) [place] % (Auto) Eos % (Auto) Baso % (Auto) Absolute Neuts (auto) Absolute Lymphs (auto) Absolute Monos (auto) Absolute Eos (auto) Absolute Basos (auto) Absolute Nucleated RBC Neutrophils % Lymphocytes % Reactive Lymphs % Monocytes % Nucleated RBC % Platelet Morphology Normal RBC Morphology INR (Anticoag Therapy) Patient Temperature ABG pH ABG pH (Temp Correct) ABG pCO2 ABG pCO2 (Temp Corrct ABG pO2 ABG pO2 (Temp Correct ABG HCO3 ABG O2 Saturation ABG Base Excess Respiration Rate O2 Delivery Device Ventilator Type Vent Mode FiO2 Inspiratory Time PEEP Pressure Support Pressure Control EPAP IPAP BiPAP Sodium Potassium 4.3 Chloride Carbon Dioxide Anion Gap BUN Creatinine Est GFR ( Amer) Est GFR (Non-Af Amer) BUN/Creatinine Ratio Glucose POC Glucose (mg/dL) 226 H 178 H Lactic Acid Calcium Urine Color Urine Appearance Urine pH Ur Specific Gre[place] Urine Protein Urine Ketones Urine Blood Urine Nitrate Urine Bilirubin Urine Urobilinogen Ur Leukocyte Esterase Urine WBC (Auto) Urine RBC (Auto) Urine Bacteria Hyaline Casts Urine Glucose Urine Opiates Screen Ur Barbiturates Screen Ur Phencyclidine Scrn Ur Amphetamines Screen U Benzodiazepines Scrn Urine Cocaine Screen U Cannabinoids Screen Serum Alcohol Influenza A (Rapid) Influenza B (Rapid) Microbiology and Other Data: Microbiology 03/22/17 17:45 Blood Venous Aerobic Blood Culture - Preliminary No Growth Day 1 03/22/17 17:45 Blood Venous Anaerobic Blood Culture - Preliminary No Growth Day 1 03/22/17 21:00 Urine Urine Culture - Final No Growth (<1,000 CFU/mL) 03/22/17 21:00 Urine Legionella Urinary Antigen - Final Negative Legionella 03/22/17 21:00 Urine Streptococcus pneumoniae Ag Screen - Final Negative S. pneumo Antigen 03/22/17 21:00 Nasal Nasal Screen MRSA (PCR)(YULIET) - Final Mrsa Negative 03/22/17 19:17 Nasal Influenza Types A,B Antigen (YULIET) - Final Specimen received for Influenza A/B Molecular testing Assess/Plan/Problems-Billing Assessment: 66 yo female PMH COPD with chronic nocturnal 2L O2 use, HTN, DM, ND, diastolic CHF, chronic back pain p/w feeling unwell then fell to knees despite 2 person assistance ambulating. COPD exacceration/pna. Improving with levaquin, IV steroids. Transfer to floor. Cultures negative. - Patient Problems (1) LLL pneumonia Current Visit: Yes Status: Acute Code(s): J18.1 - LOBAR PNEUMONIA, UNSPECIFIED ORGANISM SNOMED Code(s): 145120197 Comment: continue levaquin f/u cultures, so far negative. wean O2 as tolerated. (2) COPD exacerbation Current Visit: No Status: Acute Code(s): J44.1 - CHRONIC OBSTRUCTIVE PULMONARY DISEASE W (ACUTE) EXACERBATION SNOMED Code(s): 832203456 Comment: solumedrol 60 q12, transition to prednisone / nebs O2 goal 88-92% levaquin did not enjoy bipap abg respiratory acidosis, 7.27 pCo2 71 (3) Chronic pain Current Visit: No Status: Acute Code(s): G89.29 - OTHER CHRONIC PAIN SNOMED Code(s): 89230421 Comment: oxycodone 5mg q6h prn (4) Fall Current Visit: No Status: Acute Comment: continue telemonitor CT brain negative. (5) HTN (hypertension) Current Visit: No Status: Acute Code(s): I10 - ESSENTIAL (PRIMARY) HYPERTENSION SNOMED Code(s): 52681696 Comment: restart lisinopril 20mg, home amlodipine 5mg held on admission, titrate. (6) Morbid obesity Current Visit: No Status: Acute Code(s): E66.01 - MORBID (SEVERE) OBESITY DUE TO EXCESS CALORIES SNOMED Code(s): 068593835 Comment: physical therapy Uses walker and cane drives. (7) Type II diabetes mellitus Current Visit: No Status: Acute Comment: hyperglycemic after steroids. continus lispro SSI. no A1C in system. Status and Disposition: medicine inpatient. transferred to floor. Attending: Minh Forrester
[2017-03-23] MEDS ORDERED: Levofloxacin 750 MG IVPREMIX(* 750 MG/150 ML BAG IVPB SCH (18:00)
[2017-03-23] MEDS: Lisinopril TAB* 10 MG PO SCH (18:18)
[2017-03-23] MEDS: Atorvastatin* 10 MG TAB PO SCH (20:33)
[2017-03-24] MEDS: oxyCODONE TAB* 5 MG TAB PO PRN ×4 (00:48→20:41)
[2017-03-24] MEDS: Albuterol/Ipratropium NEB.SOL* Albuterol 2.5 MG/Ipratropium 0.5 MG 3 ML INH SCH ×2 (03:14→10:50)
[2017-03-24] MEDS: Morphine INJ* 2 MG/ML 1 ML SYRINGE (TWO MG - NEW SYRINGE VERSION) IV PRN ×2 (03:39→08:04)
[2017-03-24] MEDS: Heparin VIAL(*) 5000 UNITS/ML VIAL (FIVE THOUSAND) SUBCUT SCH ×3 (06:05→20:42)
[2017-03-24] MEDS: methylPREDNISolone 125 MG* 2 ML VIAL IV SCH (06:05)
[2017-03-24] MEDS: Insulin LISPRO* 1 UNITS UNIT SUBCUT SCH ×3 (08:04→17:05)
[2017-03-24] MEDS: Ropinirole TAB* 0.5 MG TAB PO SCH ×3 (08:04→20:41)
[2017-03-24] MEDS: Lisinopril TAB* 10 MG PO SCH (08:04)
[2017-03-24] MEDS: Aspirin EC Low Dose* 81 MG TAB.EC PO SCH (08:04)
[2017-03-24] MEDS: Nystatin OINT* 15 GM TOPICAL SCH ×3 (08:54→20:45)
[2017-03-24] MEDS ORDERED: Influenza VAC *QUAD* 2017-18* 0.5 ML SYRINGE IM ONE (09:00)
[2017-03-24 10:14] LABS: Hematocrit 56 % (35-47); Hemoglobin 17.5 g/dl (12.0-16.0); Mean Corpuscular HGB Conc 31 g/dl (31-36); Mean Corpuscular Hemoglobin 27 pg (27-31); Mean Corpuscular Volume 85 fL (80-97); Mean Platelet Volume 10 um3 (7.4-10.4); Red Cell Distribution Width 17 % (10.5-15); White Blood Count 11.7 10^3/ul (3.5-10.8)
[2017-03-24 10:16] LABS: Add Diff/Slide Review? Slide Review Added; Comments Flag Yes
[2017-03-24 10:24] LABS: Calcium 9.6 mg/dL (8.6-10.3); EGFR African American 151.7 (>60); Potassium 4.1 mmol/L (3.5-5.0)
[2017-03-24] MEDS ORDERED: Spiriva Inhaler DEVICE* 1 EACH DEVICE INH SCH (11:00)
[2017-03-24] MEDS ORDERED: Spiriva Inhaler DEVICE* 1 EACH DEVICE INH ONE (11:00)
[2017-03-24] MEDS: Tiotropium CAP.INH* CAP.INH/18 MCG (USE ORDER SET !) INH SCH (11:47)
[2017-03-24] MEDS: Mometasone/Formoter 200/5 MDI INH SCH (11:50)
--- NOTE | 2017-03-24 17:49 | PN ---
Subjective Date of Service: 03/24/17 Interval History: pt down to 2L. Worked with PT who recommend home with no needs. still some wheezing but improved. No problems with knees giving out. Objective Active Medications: Acetaminophen (Tylenol Tab*) 650 mg PO Q4H PRN PRN Reason: FEVER/PAIN Albuterol (Ventolin 2.5 Mg/3 Ml Neb.Analilia*) 2.5 mg INH Q2H PRN PRN Reason: SOB/WHEEZING Aspirin (Aspirin Ec Low Dose*) 81 mg PO QAM [facility] Last Admin: 03/24/17 08:04 Dose: 81 mg Atorvastatin Calcium (Lipitor*) 10 mg PO BEDTIME [facility] Last Admin: 03/23/17 20:33 Dose: 10 mg Dextrose (D50w Syringe 50 Ml*) 12.5 gm IV PUSH .FOR FS < 60 - SS PRN PRN Reason: FS < 60 Heparin Sodium (Porcine) (Heparin Vial(*)) 5,000 units SUBCUT Q8HR [facility] Last Admin: 03/24/17 13:34 Dose: 5,000 units Insulin Human Lispro (Humalog*) 0 units SUBCUT AC [facility] PRN Reason: Protocol Last Admin: 03/24/17 17:05 Dose: Not Given Levofloxacin (Levaquin Tab*) 750 mg PO DAILY [facility] Lisinopril (Prinivil Tab*) 20 mg PO QAM [facility] Last Admin: 03/24/17 08:04 Dose: 20 mg Nystatin (Nystatin Oint*) 1 applic TOPICAL TID [facility] Last Admin: 03/24/17 13:33 Dose: Not Given Ondansetron HCl (Zofran Inj*) 4 mg IV Q6H PRN PRN Reason: NAUSEA Oxycodone HCl (Roxycodone Tab*) 5 mg PO Q6H PRN PRN Reason: NOT SPECIFIED Last Admin: 03/24/17 16:40 Dose: 5 mg Prednisone (Deltasone Tab*) 60 mg PO DAILY [facility] Ropinirole HCl (Requip Tab*) 0.5 mg PO TID [facility] Last Admin: 03/24/17 13:34 Dose: 0.5 mg Tiotropium Bement (Spiriva Cap.Inh*) 1 cap INH DAILY [facility] Last Admin: 03/24/17 11:47 Dose: 1 inh Vital Signs 03/23/17 03/23/17 03/23/17 18:24 19:34 19:55 Temperature 98.4 F Pulse Rate 74 73 Respiratory 20 14 16 Rate Blood Pressure 140/54 (mmHg) O2 Sat by Pulse 91 97 Oximetry 03/23/17 03/23/17 03/23/17 20:00 20:24 23:51 Temperature Pulse Rate 92 92 Respiratory 18 18 18 Rate Blood Pressure (mmHg) O2 Sat by Pulse 97 97 Oximetry 03/24/17 03/24/17 03/24/17 00:00 00:13 00:48 Temperature 97.8 F Pulse Rate 86 Respiratory 16 20 Rate Blood Pressure 168/65 (mmHg) O2 Sat by Pulse 97 91 Oximetry 03/24/17 03/24/17 03/24/17 02:48 03:39 04:24 Temperature 98.0 F Pulse Rate 71 Respiratory 19 20 16 Rate Blood Pressure 138/59 (mmHg) O2 Sat by Pulse 92 Oximetry 03/24/17 03/24/17 03/24/17 04:39 07:43 08:00 Temperature 97.9 F Pulse Rate 69 Respiratory 18 20 Rate Blood Pressure 147/55 (mmHg) O2 Sat by Pulse 92 Oximetry 03/24/17 03/24/17 03/24/17 08:04 09:04 10:31 Temperature Pulse Rate Respiratory 18 20 20 Rate Blood Pressure (mmHg) O2 Sat by Pulse Oximetry 03/24/17 03/24/17 03/24/17 10:34 10:35 11:22 Temperature 97.4 F Pulse Rate 75 67 Respiratory 20 20 Rate Blood Pressure 144/63 (mmHg) O2 Sat by Pulse 92 92 90 Oximetry 03/24/17 03/24/17 03/24/17 12:31 16:05 16:40 Temperature 98.3 F Pulse Rate 67 Respiratory 18 18 18 Rate Blood Pressure 143/64 (mmHg) O2 Sat by Pulse 91 Oximetry Oxygen Devices in Use Now: Nasal Cannula Appearance: NAD sitting on side of bed. Ears/Nose/Mouth/Throat: NL Teeth, Lips, Gums, Mucous Membranes Moist Neck: NL Appearance and Movements; NL JVP, Trachea Midline Respiratory: Symmetrical Chest Expansion and Respiratory Effort, - - slight expiratory wheeze. good air exchange. no rhonchi or rales. Cardiovascular: NL Sounds; No Murmurs; No JVD, RRR Abdominal: NL Sounds; No Tenderness; No Distention, No Hepatosplenomegaly Extremities: No Edema, No Clubbing, Cyanosis Skin: No Rash or Ulcers Neurological: Alert and Oriented x 3, NL Muscle Strength and Tone Nutrition: Taking PO's Result Diagrams: 03/24/17 10:02 03/24/17 10:02 Additional Lab and Data: Laboratory Results - last 24 hr 03/24/17 03/24/17 03/24/17 07:30 10:02 10:02 WBC 11.7 H RBC 6.60 H Hgb 17.5 H Hct 56 H MCV 85 MCH 27 MCHC 31 RDW 17 H Plt Count 152 MPV 10 Neut % (Auto) 91.7 H Lymph % (Auto) 3.7 L [place] % (Auto) 4.4 Eos % (Auto) 0 Baso % (Auto) 0.2 Absolute Neuts (auto) 10.7 H Absolute Lymphs (auto) 0.4 L Absolute Monos (auto) 0.5 Absolute Eos (auto) 0 Absolute Basos (auto) 0 Absolute Nucleated RBC 0.05 Nucleated RBC % 0.4 Sodium 138 Potassium 4.1 Chloride 103 Carbon Dioxide 32 Anion Gap 3 BUN 13 Creatinine 0.52 Est GFR ( Amer) 151.7 Est GFR (Non-Af Amer) 118.0 BUN/Creatinine Ratio 25.0 H Glucose 148 H POC Glucose (mg/dL) 148 H Calcium 9.6 03/24/17 03/24/17 11:33 16:49 WBC RBC Hgb Hct MCV MCH MCHC RDW Plt Count MPV Neut % (Auto) Lymph % (Auto) [place] % (Auto) Eos % (Auto) Baso % (Auto) Absolute Neuts (auto) Absolute Lymphs (auto) Absolute Monos (auto) Absolute Eos (auto) Absolute Basos (auto) Absolute Nucleated RBC Nucleated RBC % Sodium Potassium Chloride Carbon Dioxide Anion Gap BUN Creatinine Est GFR ( Amer) Est GFR (Non-Af Amer) BUN/Creatinine Ratio Glucose POC Glucose (mg/dL) 129 H 104 H Calcium Microbiology and Other Data: Microbiology 03/22/17 20:40 Blood Venous Aerobic Blood Culture - Preliminary No Growth Day 2 03/22/17 20:40 Blood Venous Anaerobic Blood Culture - Preliminary No Growth Day 2 03/22/17 20:40 Blood Venous Blood Culture - Final 03/22/17 17:45 Blood Venous Aerobic Blood Culture - Preliminary No Growth Day 2 03/22/17 17:45 Blood Venous Anaerobic Blood Culture - Preliminary No Growth Day 2 03/22/17 17:45 Blood Venous Blood Culture - Final 03/22/17 21:00 Urine Urine Culture - Final No Growth (<1,000 CFU/mL) 03/22/17 21:00 Urine Legionella Urinary Antigen - Final Negative Legionella 03/22/17 21:00 Urine Streptococcus pneumoniae Ag Screen - Final Negative S. pneumo Antigen 03/22/17 21:00 Nasal Nasal Screen MRSA (PCR)(YULIET) - Final Mrsa Negative 03/22/17 19:17 Nasal Influenza Types A,B Antigen (YULIET) - Final Specimen received for Influenza A/B Molecular testing Assess/Plan/Problems-Billing Assessment: 66 yo female PMH COPD with chronic nocturnal 2L O2 use, HTN, DM, MA, diastolic CHF, chronic back pain p/w feeling unwell then fell to knees despite 2 person assistance ambulating. Acute hypoxic and hypercapnic respiratory failure 2/2 COPD exacceration and pneumonia. Improving with levaquin, steroids. Cultures negative. - Patient Problems (1) LLL pneumonia Current Visit: Yes Status: Acute Code(s): J18.1 - LOBAR PNEUMONIA, UNSPECIFIED ORGANISM SNOMED Code(s): 065223309 Comment: continue levaquin, switch to po f/u cultures, so far negative. wean O2 as tolerated. (2) COPD exacerbation Current Visit: No Status: Acute Code(s): J44.1 - CHRONIC OBSTRUCTIVE PULMONARY DISEASE W (ACUTE) EXACERBATION SNOMED Code(s): 229719673 Comment: prednisone 60mg 03/24 nebs O2 goal 88-92% levaquin abg respiratory acidosis, 7.27 pCo2 71 (3) Chronic pain Current Visit: No Status: Acute Code(s): G89.29 - OTHER CHRONIC PAIN SNOMED Code(s): 64337370 Comment: oxycodone 5mg q6h prn (4) Fall Current Visit: No Status: Acute Comment: continue telemonitor CT brain negative. (5) HTN (hypertension) Current Visit: No Status: Acute Code(s): I10 - ESSENTIAL (PRIMARY) HYPERTENSION SNOMED Code(s): 25261424 Comment: continue lisinopril 20mg, home amlodipine 5mg held on admission, add back 03/25 (6) Morbid obesity Current Visit: No Status: Acute Code(s): E66.01 - MORBID (SEVERE) OBESITY DUE TO EXCESS CALORIES SNOMED Code(s): 513828055 Comment: physical therapy: no acute needs -> d/c to home 03/25 with [facility]NS Uses walker and cane drives. (7) Type II diabetes mellitus Current Visit: No Status: Acute Comment: hyperglycemic after IV steroids now improved. continus lispro SSI. no A1C in system. Status and Disposition: medicine inpatient. likely d/c 03/25 Attending: Minh Forrester
[2017-03-24] MEDS: Atorvastatin* 10 MG TAB PO SCH (20:42)
[2017-03-25] MEDS: oxyCODONE TAB* 5 MG TAB PO PRN ×2 (02:40→08:51)
[2017-03-25] MEDS: Heparin VIAL(*) 5000 UNITS/ML VIAL (FIVE THOUSAND) SUBCUT SCH (05:09)
[2017-03-25] MEDS: Tiotropium CAP.INH* CAP.INH/18 MCG (USE ORDER SET !) INH SCH (08:27)
[2017-03-25] MEDS: Insulin LISPRO* 1 UNITS UNIT SUBCUT SCH (08:29)
[2017-03-25 08:36] VITALS: BP 135/68
[2017-03-25] MEDS: Lisinopril TAB* 10 MG PO SCH (08:50)
[2017-03-25] MEDS: Nystatin OINT* 15 GM TOPICAL SCH (08:51)
[2017-03-25] MEDS: Aspirin EC Low Dose* 81 MG TAB.EC PO SCH (08:51)
[2017-03-25] MEDS: Ropinirole TAB* 0.5 MG TAB PO SCH (08:51)
[2017-03-25] MEDS ORDERED: predniSONE TAB* 20 MG PO SCH (09:00)
[2017-03-25] MEDS ORDERED: amLODIPine TAB* 5 MG PO SCH (09:00)
[2017-03-25 10:32] LABS: Hematocrit 61 % (35-47); Mean Corpuscular HGB Conc 32 g/dl (31-36); Mean Corpuscular Hemoglobin 27 pg (27-31); Mean Corpuscular Volume 85 fL (80-97); Mean Platelet Volume 10 um3 (7.4-10.4); Red Blood Count 7.14 10^6/ul (4.0-5.4); Red Cell Distribution Width 17 % (10.5-15)
[2017-03-25 10:35] LABS: Comments Flag Yes
[2017-03-25] MEDS ORDERED: Levofloxacin TAB* 750 MG PO SCH ×2 (10:35→16:00)
[2017-03-25 10:36] LABS: Hemoglobin 19.2 g/dl (12.0-16.0)
[2017-03-25 10:50] LABS: BUN/Creatinine Ratio 26.2 (8-20); Calcium 9.9 mg/dL (8.6-10.3); EGFR African American 117.3 (>60); EGFR Non-African American 91.2 (>60); Potassium 3.9 mmol/L (3.5-5.0)
--- NOTE | 2017-03-25 14:07 | DS ---
DISCHARGE SUMMARY: DATE OF ADMISSION: 03/22/17 DATE OF DISCHARGE: 03/25/17 ADMITTING PROVIDER: Dalton Borrego NP PRIMARY CARE PROVIDER: Dr. Murphy ([place]). CHIEF COMPLAINT: Shortness of breath, fall to knees, generalized weakness. PRINCIPAL DIAGNOSES: 1. Left-sided pneumonia. 2. Chronic obstructive pulmonary disease exacerbation. SECONDARY DIAGNOSES: 1. Chronic back pain. 2. Restless legs syndrome. 3. Hypertension. 4. Hyperlipidemia. 5. Diabetes. 6. Chronic obstructive pulmonary disease. 7. History of cervical cancer. 8. History of myocardial infarction. HISTORY OF PRESENT ILLNESS AND HOSPITAL COURSE: The patient is a 66-year-old female with past medical history as above, who for the last 2 days prior to admission was feeling more weak. She was visiting her daughter, did not feel like she could drive herself home, 2 people were helping to carry her into her home when her knees gave out and she fell on the ground. No head trauma. She attested to increasing shortness of breath. She had a dry cough. She was taken to [facility] Emergency Room, had an x-ray which was notable for left-sided pneumonia. She was started on IV Levaquin. She was initially transferred to the ICU and placed on BiPAP which she tolerated, but does not enjoy. By morning of hospital day #2, she was off the BiPAP. She improved with IV steroids initially 60 mg Solu-Medrol q.12 hours, now transitioned to oral prednisone. She was down to her baseline 2 L by night of hospital day #2. She, of note, takes 2 L at night only usually. She has now productive cough. Her blood cultures have been negative x2 days. Her MRSA of nares was negative. Her legionella urine antigen and Streptococcus pneumoniae urine antigen screens were negative. Urine culture was negative. She has been afebrile. Her leukocytosis has improved from 14.3 to 11.0. She is ambulating well and stable for discharge with close followup with Dr. Murphy on 03/27/17, 2 days after discharge. The patient had an elevated hemoglobin of 17.6 on admission, stable in the mid 17s and actually jackie to 19.2 on the day of discharge. She has a history of occasional elevated hemoglobins back in 2014, ranged from 16.9 to 18.5, but otherwise again was back down to 13.7. Consideration for outpatient testing for JAK2 mutation or other polycythemia vera workup may be warranted including a serum EPO level. The patient can be discharged on total course of 7 days of Levaquin and prednisone taper 60 mg x4 days, 40 mg x4 days, 20 mg x4 days. Referral for VNS services was also provided. MEDICATIONS ON DISCHARGE: Include: 1. Levaquin 750 mg p.o. daily x5 more days. 2. Aspirin 81 mg daily. 3. Simvastatin 20 mg daily. 4. Lisinopril 20 mg q.a.m. 5. Ropinirole 0.5 mg t.i.d. taken morning, afternoon, and middle of the night around 2 a.m. along with 1 mg tab at q.h.s. 6. Amlodipine 5 mg daily. 7. Oxycodone 5 mg q.6 hours p.r.n. 8. Prednisone 20 mg tabs, 60 mg for 4 days, 40 mg for 4 days, 20 mg for 4 days. 9. Cholecalciferol 2000 units p.o. daily. 10. Lyrica 150 mg p.o. t.i.d. 11. Spiriva 1 capsule inhaled daily (new). 12. Metformin 500 mg p.o. b.i.d. 13. Tizanidine 2 mg p.o. four times a day. DISCHARGE DIET: Carbohydrate consistent. ACTIVITY LEVEL: Unrestricted. FOLLOWUP: With Dr. Murphy on 03/27/17 and VNS services. TIME SPENT: On discharge 35 minutes. [id number]/CPS #: [id number] MTDD
== END 2017-03-25 11:50 | disposition home or self-care (01) | DRG 194 ==
LOC: ED 14:52 → UNDOADMIN 18:17 → MED 18:17 → ICU 18:17 → MEDTELE 03-23 15:00
PROVIDERS: ADMIT Internal Medicine; ATTEND Internal Medicine
DX: J18.9 Pneumonia, unspecified organism (principal); I50.30 Unspecified diastolic (congestive) heart failure; I11.0 Hypertensive heart disease with heart failure; E66.01 Morbid (severe) obesity due to excess calories; J44.1 Chronic obstructive pulmonary disease with (acute) exacerbation; M54.9 Dorsalgia, unspecified; G25.81 Restless legs syndrome; E78.5 Hyperlipidemia, unspecified; E11.9 Type 2 diabetes mellitus without complications; I25.2 Old myocardial infarction; Z85.41 Personal history of malignant neoplasm of cervix uteri; Z79.84 Long term (current) use of oral hypoglycemic drugs; Z79.82 Long term (current) use of aspirin; Z79.891 Long term (current) use of opiate analgesic; Z79.899 Other long term (current) drug therapy; Z88.0 Allergy status to penicillin; Z91.040 Latex allergy status; Z82.5 Family history of asthma and other chronic lower respiratory diseases; F17.210 Nicotine dependence, cigarettes, uncomplicated; Z68.39 Body mass index [BMI] 39.0-39.9, adult
CPT/HCPCS: 36415; 36600; 70450; 71020; 80048; 80053; 80307; 80320; 81003; 81015; 82803; 83605; 84484; 85025; 85610; 87040; 87086; 87502; 87641; 87899; 90686; 93005; 94640; 94660; 94760; 94762; A9270-GY; G0480; J1644; J2270; J2930; J7512

== ENCOUNTER 2019-02-01 10:46 | Emergency (ER) | payer MEDICARE ==
--- NOTE | 2019-02-01 12:44 | UC ---
Throat Pain/Nasal Ivan HPI - HPI Summary HPI Summary: 68 y/o female presents to the urgent care c/o nasal congestion, moderate yellowish PND w/ productive cough, sore throat for the past 4 days. Pt reports she is a heavy everyday smoker and has Hx of DM type II, COPD and asthma. Mild wheezing started today. She did Nebulizer treatment yesterday and has been taken a diabetic cough syrup to alleviate cough. She hasn't been able to sleep well since last night due to cough. Pt states her normal O2Sat is usually 92-93% and sometimes she uses O2 prn, but she states she hasn't used it lately. Pt denies fever, RITTER, SOB, dizziness, wheezing, chest pain, abdominal pain, N/V/ d. - History of Current Complaint Chief Complaint: UCRespiratory Stated Complaint: URI Time Seen by Provider: 02/01/19 12:26 Hx Obtained From: Patient Hx Last Menstrual Period: Years ago. Onset/Duration: Gradual Onset, Lasting Days - 4 days, Still Present, Worse Since - last night Severity: Moderate Pain Intensity: 7 - sore throat Pain Scale Used: 0-10 Numeric Cough: Sputum Appears - yellowish Associated Signs & Symptoms: Positive: Wheezing, Sinus Discomfort, Nasal Discharge - yellowish - Epiglottits Risk Factors Epiglottis Risk Factors: Negative - Allergies/Home Medications Allergies/Adverse Reactions: Allergies Allergy/AdvReac Type Severity Reaction Status Date / Time latex Allergy Swelling Verified 02/01/19 10:57 Penicillins Allergy Hives Verified 02/01/19 10:57 PMH/Surg Hx/FS Hx/Imm Hx Previously Healthy: Yes Endocrine History: Diabetes, Dyslipidemia Cardiovascular History: Hypertension Respiratory History: COPD, Asthma Other History Of: Anticoagulant Therapy - ASA Negative For: HIV, Hepatitis B, Hepatitis C - Surgical History Surgical History: Yes Surgery Procedure, Year, and Place: 1979 OOPHORECTOMY (UNSURE WHICH ONE), [facility] [place]. 1987 HYSTERECTOMY, [facility] [place]. 1968, 1970, 1972 3 CSECTIONS, [facility] [place]. 1986, 2001, 2014 3 BACK SURGERIES, [facility]. 2006 ACDF C5-7, [facility] [place], - Family History Known Family History: Positive: Hypertension, Diabetes Family History: father - heart disease, mother - [place] - Social History Occupation: Retired Lives: With Family Alcohol Use: None Substance Use Type: Prescribed Smoking Status (MU): Light Every Day Tobacco Smoker Type: Cigarettes Amount Used/How Often: 5 - 6 CIG/DAY FOR APPROX 44 YEARS Length of Time of Smoking/Using Tobacco: 44 YEARS Have You Smoked in the Last Year: Yes Household Exposure Type: Cigarettes - Immunization History Most Recent Influenza Vaccination: 2015/2016 flu season Most Recent Tetanus Shot: unknown Most Recent Pneumonia Vaccination: 2015 Review of Systems All Other Systems Reviewed And Are Negative: Yes Constitutional: Positive: Chills, Fatigue Skin: Positive: Negative Eyes: Positive: Negative ENT: Positive: Sore Throat, Nasal Discharge - yellowish, Sinus Congestion Respiratory: Positive: Cough - productive w/ yellowish phlegm, Other - wheezing Cardiovascular: Positive: Negative Gastrointestinal: Positive: Negative Genitourinary: Positive: Negative Motor: Positive: Negative Neurovascular: Positive: Negative Musculoskeletal: Positive: Negative Neurological: Positive: Negative Psychological: Positive: Negative Is Patient Immunocompromised?: No Physical Exam - Summary Physical Exam Summary: Vital Signs Reviewed: Yes General: well developed, well nourished male sitting in the examining table w/o any apparent distress Eyes: Positive: Conjunctiva Clear - PERRLA, EOMI, fundi grossly normal ENT: Positive: Normal ENT inspection, Hearing grossly normal, Pharynx normal, Nasal congestion - edematous and erythematous nasal mucosa, Nasal drainage - yellowish drainage, TMs normal. Negative: Tonsillar swelling, Tonsillar exudate Neck: Positive: Supple, Nontender, No Lymphadenopathy Respiratory: no orthopnea or dyspnea. Able to speak in full sentences, no retractions or accessory muscle use, no tripod position, stridor, or head bobbing. Positive breath sounds bilaterally. diffuse scattered wheezing and rhonchi on b/L lungs, no crackles or rales. Cardiovascular: Positive: RRR, No Murmur, Pulses Normal, Brisk Capillary Refill Abdomen Description: Positive: Nontender, No Organomegaly, Soft. Negative: CVA Tenderness (R), CVA Tenderness (L) Bowel Sounds: Positive: Present Musculoskeletal Exam: Normal Musculoskeletal: Positive: Strength Intact, ROM Intact, No Edema Neurological Exam: Normal Psychological Exam: Normal Skin Exam: Normal Triage Information Reviewed: Yes Vital Signs: Initial Vital Signs Temp 97 F 02/01/19 10:51 Pulse 100 02/01/19 10:51 Resp 20 02/01/19 10:51 BP 116/52 02/01/19 10:51 Pulse Ox 92 02/01/19 10:51 Throat Pain/Nasal Course/Dx - Course Course Of Treatment: 68 y/o female presents to the urgent care c/o nasal congestion, moderate yellowish PND w/ productive cough, sore throat for the past 4 days. Pt reports she is a heavy everyday smoker and has Hx of DM type II, COPD and asthma. Mild wheezing started today. She did Nebulizer treatment yesterday and has been taken a diabetic cough syrup to alleviate cough. She hasn't been able to sleep well since last night due to cough.Pt states her normal O2Sat is usually 92-93% and sometimes she uses O2 prn, but she states she hasn't used it lately. Pt denies fever, RITTER, SOB, dizziness, wheezing, chest pain, abdominal pain, N/V /d. Hx obtained. Pt is hemodynamically stable, A&OX3 w/ scattered wheezes on bilaterally lungs, and mild rhonchi, good air entry B/L on examination. O2Sat: 92% which she states is her normal. Pt w/ possible a COPD exacerbation Vs pneumonia.. Rapid strep: negative. However Pt declines Prednisone PO. Pt givne a Duoneb Treatment to alleviate symptoms. Chest X-ray ordered:IMPRESSION: Suggestion of LEFT basialr pneumonia superimprosed on COPD. This finding is similar to the chest radiograph from 2017. although may be recurrent rather than chronic. Radiographic f/u advised after therapy to make sure complete resolution as per radiologist. Pt's symptoms discussed w/ Dr Rodrigues who suggests 3-4 days of Prednisone PO and antibiotic treatment. However Pt still declines Prednisone treatment. Pt tolerated well treatment and lungs improved,and wheezing resolved. Patient prescribed Doxycycline PO, and Tessalon Tabs to alleviate symptoms as directed below. Also advised to continue w/ w/ Duoneb treatment. The patient was recommended to increase fluid intake. Take medications as recommended. Pt strongly advised to f/u w/ her PCP for repeat chest x-ray to make sure complete resolution of her pneumonia and further management on her COPD. All D/C instructions explained. Patient understood and agree w/ plan of care. Pt left clinic hemodynamically stable , A&OX3 - Differential Dx/Diagnosis Differential Diagnosis/HQI/PQRI: Influenza, Laryngitis, Pharyngitis, Sinusitis, URI, Other - COPD , astham exacerbation, pneumonia, Provider Diagnosis: Community acquired pneumonia, COPD (chronic obstructive pulmonary disease) Discharge ED - Sign-Out/Discharge Documenting (check all that apply): Patient Departure - D/C home All imaging exams completed and their final reports reviewed: Yes - Discharge Plan Condition: Stable Disposition: HOME Prescriptions: Benzonatate CAP* [Tessalon 100 MG CAP*] 100 mg PO TID PRN #21 cap PRN Reason: Cough DOXYcycline CAP(*) [DOXYcycline 100MG CAP(*)] 100 mg PO BID #20 cap Patient Education Materials: COPD (Chronic Obstructive Pulmonary Disease) (ED) , Community Acquired Pneumonia (ED) Referrals: Aden Murphy MD [Primary Care Provider] - 3 Days Additional Instructions: 1-Please take full course of antibiotics to avoid resistance. Take Yourts w/ probiotics or culturelle to protect your GI system 2-Take Tessalon tabs PO as directed and continue w/ your Duo neb treatment to alleviate cough and mild wheezing. Increase fluid intake, rest and eat well. 3- If symptoms do not improve or worsen or your develop SOB with fever and severe cough please go immediately to the ER further evaluation and treatment. 4-See your PCP in 2-3 days to check your symptoms are improving and further management in your COPD. Please make sure to repeat chest X-ray after you finished full treatment w/ antibiotics to make sure complete resolution of your pneumonia. - Billing Disposition and Condition Condition: STABLE Disposition: Home
[2019-02-01] MEDS ORDERED: Albuterol/Ipratropium NEB.SOL* Albuterol 2.5 MG/Ipratropium 0.5 MG 3 ML INH ONE (12:54)
[2019-02-01 13:03] VITALS: BP 117/61
== END 2019-02-01 13:55 | disposition home or self-care (01) ==
LOC: UCEAST 10:46
DX: J18.9 Pneumonia, unspecified organism (principal); J44.9 Chronic obstructive pulmonary disease, unspecified; F17.210 Nicotine dependence, cigarettes, uncomplicated; Z88.0 Allergy status to penicillin; Z91.040 Latex allergy status; Z79.82 Long term (current) use of aspirin
CPT/HCPCS: 71046; 87651; 99212; A9270-GY; G0463

== ENCOUNTER 2019-08-17 11:40 | Emergency (ER) | payer MEDICARE ==
--- OUTSIDE RECORDS SUMMARY | 2019-08-17 11:47 | XMS REPORT | Continuity of Care Document ---
:1950 External Reference #:[id number] Author Name Michael Root DO, MPH Address [address] [place] [address], [address] [place] [address] Care Team Providers Name Role Phone Esteban Tolentino M.D. - Neurological Care Team Information Cardiopulmonary Technician Surgery Aden Murphy M.D. - Family Medicine Care Team Information Cardiopulmonary Technician [phone] Nitin Strange M.D. - Neurological Care Team Information Cardiopulmonary Technician Surgery Problems Description No Information Available Social History Type Date Description Comments Sex Unknown Cigarette Use Current Cigarette Smoker 1/2 Pack Daily ETOH Use Denies alcohol use Tobacco Use Start: Unknown End: Unknown Patient is a former smoker Smoking Status Reviewed: 07/30/19 Patient is a former smoker Allergies, Adverse Reactions, Alerts Active Allergies Reaction Severity Comments Date PCN 04/27/2005 Medications Active Medications SIG Qnty Indications Ordering Provider Date Voltaren apply 4grams to 5tubes Michael Root DO, 12/03/2018 1% Gel affected area MPH four times a day as directed Lyrica si by mouth 90caps Michael Root DO, 11/15/2016 150mg Capsules three times a day MPH as directed chronic pain patient Tizanidine HCL si by mouth 120tabs Michael Root DO, 04/08/2015 2mg four times a day MPH Tablets as directed chronic pain patient Oxycodone HCL si by mouth 150tabs Michael Root DO, 04/08/2015 5mg every 4 to 6 MPH Tablets hours as directed chronic pain patient Metformin HCL 1 po bid Unknown 1000mg Tablets Zestril 1 po qd ud Unknown 10mg Tablets Aspirin 1 po qd ud Unknown 81mg Tablets Vitamin D-3 Super 1 po qd ud Unknown Strength 2000Unit Tablets Wellbutrin SR si by mouth Unknown 150mg twice a day as Tablets ER 12HR directed Vitamin B12 Unknown 1000mcg Tablets ER Simvastatin 1 by mouth every Unknown 20mg day Tablets Ropinirole HCL 2 po daily ud Unknown 0.5mg Tablets Amlodipine Besylate si by mouth Unknown every day 5mg Tablets Lisinopril si by mouth Unknown 20mg every day as Tablets directed Immunizations Description No Information Available Vital Signs Date Vital Result Comment 07/30/2019 8:52am BP Systolic 128 mmHg BP Diastolic 84 mmHg Heart Rate 78 /min Respiratory Rate 20 /min Height 64 inches 5'4" Weight 215.00 lb Pain Level 7 Pain at this time. Pain Level With Medicine 6 on average with meds Pain Level Without Medicine 9 without meds BMI (Body Mass Index) 36.9 kg/m2 07/01/2019 8:58am BP Systolic 120 mmHg BP Diastolic 78 mmHg Heart Rate 76 /min Respiratory Rate 20 /min Height 64 inches 5'4" Weight 229.00 lb Pain Level 7 Pain at this time. Pain Level With Medicine 6 on average with meds Pain Level Without Medicine 9 without meds BMI (Body Mass Index) 39.3 kg/m2 Results Description No Information Available Procedures Description No Information Available Medical Devices Description No Information Available Encounters Type Date Location Provider Dx Diagnosis Office Visit 07/01/2019 Main Office as Of Michael Root DO G89.21 Chronic pain due 9:00a 07/06/13 MPH to trauma M54.5 Low back pain Z79.891 senior care (current) use of opiate analgesic Z79.891 senior care (current) use of opiate analgesic Office Visit 06/03/2019 9:15a Main Office as Michael Root G89.21 Chronic pain due Of 07/06/13 , MPH to trauma M54.5 Low back pain Z79.891 oysterman (current) use of opiate analgesic Z79.891 senior care (current) use of opiate analgesic Office Visit 05/13/2019 9:30a Main Office as Michael Root G89.21 Chronic pain due Of 07/06/13 DO, MPH to trauma M54.5 Low back pain Z79.891 oysterman (current) use of opiate analgesic Z79.891 senior care (current) use of opiate analgesic Office Visit 04/05/2019 9:15a Main Office as Michael Root G89.21 Chronic pain due Of 07/06/13 DO, MPH to trauma M54.5 Low back pain Z79.891 oysterman (current) use of opiate analgesic Z79.891 oysterman (current) use of opiate analgesic Office Visit 03/05/2019 9:30a Main Office as Michael Root G89.21 Chronic pain due Of 07/06/13 DO, MPH to trauma M54.5 Low back pain Z79.891 senior care (current) use of opiate analgesic Z79.891 oysterman (current) use of opiate analgesic Office Visit 02/01/2019 9:45a Main Office as RootMichael morales G89.21 Chronic pain due Of 07/06/13 DO, MPH to trauma M54.5 Low back pain Z79.891 senior care (current) use of opiate analgesic Z79.891 oysterman (current) use of opiate analgesic Assessments Date Code Description Provider 07/30/2019 G89.21 Chronic pain due to trauma Root, Michael, DO, MPH 07/30/2019 M54.5 Low back pain Root, Michael, DO, MPH 07/30/2019 Z79.891 oysterman (current) use of opiate analgesic Root, Michael , DO, MPH 07/30/2019 Z79.891 oysterman (current) use of opiate analgesic Root, Michael , DO, MPH 07/01/2019 G89.21 Chronic pain due to trauma Root, Michael, DO, MPH 07/01/2019 M54.5 Low back pain Root, Michael, DO, MPH 07/01/2019 Z79.891 oysterman (current) use of opiate analgesic Root, Michael , DO, MPH 07/01/2019 Z79.891 oysterman (current) use of opiate analgesic Root, Michael , DO, MPH 06/03/2019 G89.21 Chronic pain due to trauma Root, Michael, DO, MPH 06/03/2019 M54.5 Low back pain Root, Michael, DO, MPH 06/03/2019 Z79.891 senior care (current) use of opiate analgesic Root, Michael , DO, MPH 06/03/2019 Z79.891 oysterman (current) use of opiate analgesic Root, Michael , DO, MPH 05/13/2019 G89.21 Chronic pain due to trauma Root, Michael, DO, MPH 05/13/2019 M54.5 Low back pain Root, Michael, DO, MPH 05/13/2019 Z79.891 senior care (current) use of opiate analgesic Root, Michael , DO, MPH 05/13/2019 Z79.891 senior care (current) use of opiate analgesic Root, Michael , DO, MPH 04/05/2019 G89.21 Chronic pain due to trauma Root, Michael, DO, MPH 04/05/2019 M54.5 Low back pain Root, Michael, DO, MPH 04/05/2019 Z79.891 senior care (current) use of opiate analgesic Root, Michael , DO, MPH 04/05/2019 Z79.891 senior care (current) use of opiate analgesic Root, Michael , DO, MPH 03/05/2019 G89.21 Chronic pain due to trauma Root, Michael, DO, MPH 03/05/2019 M54.5 Low back pain Root, Michael, DO, MPH 03/05/2019 Z79.891 senior care (current) use of opiate analgesic Root, Michael , DO, MPH 03/05/2019 Z79.891 senior care (current) use of opiate analgesic Root, Michael , DO, MPH 02/01/2019 G89.21 Chronic pain due to trauma Root, Michael, DO, MPH 02/01/2019 M54.5 Low back pain Root, Michael, DO, MPH 02/01/2019 Z79.891 senior care (current) use of opiate analgesic Root, Michael , DO, MPH 02/01/2019 Z79.891 senior care (current) use of opiate analgesic Michael Root DO, MPH Plan of Treatment Future Appointment(s):08/28/2019 10:00 am - Michael Root DO, MPH at Main Office as Of 07/06/1401 - Michael Root DO, MPHG89.21 Chronic pain due to traumaComments:Chronic. Symptoms and complaints discussed and reviewed today. No significant changes in physical findings. Continue current medical pain management.M54.5 Low back painComments:Chronic. Symptoms and complaints discussed and reviewed today.No changes in physical findings. Patient is stable and comfortable when current medical therapy is rendered.Z79.891 senior care ( current) use of opiate analgesicNew Labs:Urine Drug Screen, Ordered: Comments:Urine drug screen sample taken. Rapid Point of Care Cup was reviewed in office with patient. Will send out UDT Rapid to [facility] lab for confirmation testing. Urine Drug Testing (UDT) was done today to monitor opiate use and to monitor possible use of illicit substances. I will discuss the results at the next appointment from the Quantitative lab.The following tests were ordered:6 AM, AMPH, ROGER, JENNIFER, BUP, CARIS, COCM, ETG, FENT, MCSHSG, OPI, OXY, PCP, TAPEN, XTSY, ZOLP. A urine drug test (UDT) using a rapid screen cup was ordered for this patient and collected on site today. Creatinine has been ordered as well for specimen validity, not for kidney function. Urine Drug Testing is a mandatory component of chronic opioid management, as part of the baseline assessment and ongoing re-assessment of opioid therapy. Per [place] [employer], [place] Non- Acute Pain Medical Treatment Guidelines, section F.3.d.i. This test is to be used in conjunction with other clinical information when decisions are to be made to continue, adjust or discontinue treatment. This information includes clinical observation, results of addiction screening, pill counts, and prescription drug monitoring reports. Preliminary UDT screen results are not final and should not be used to determine patient care or plan of treatment. This sample will be sent out for a more comprehensive quantitative confirmation LCMS study. It is part of the treatment process of prescribing controlled substances and is considered standard of care at this clinic.AllComments: Continue current medical pain management; injection therapy, osteopathic manipulation, PT / modalities, and consults as needed to manage chronic pain.Non - opioid pain management discussed and optionsdiscussed.Side effects discussed; anticipatory guidance given. Patient clearly understand and agree with all medical treatments and suggestions. All medicines prescribed are adequate and appropriate for this patient's complaint of pain, medical history, physical, and personal goals.Goals of Treatment are to provide adequate and appropriate multidisciplinary medical pain management to increase/ maintain patient's quality of life and functionality while maintaining satisfactory side effect profile andminimizing extermination inspector end-organ damage. Importance of regular nutrition throughout the day discussed.Activity as toleratedContinue with PCP Functional Status Description No Information Available Mental Status Description No Information Available Referrals Description No Information Available
--- OUTSIDE RECORDS SUMMARY | 2019-08-17 11:47 | XMS REPORT | Continuity of Care Document ---
:1950 External Reference #:[id number] Author Name Michael Root DO, MPH Address [address] [place] [address], [address] [place] [address] Care Team Providers Name Role Phone Esteban Tolentino M.D. 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 - Family Medicine Care Team Information Scarfing Machine Operator Nitin Strange M.D. 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 Pain Level With Medicine 6 on average with meds Pain Level Without Medicine 9 without meds BMI (Body Mass Index) 39.3 kg/m2 06/03/2019 9:00am BP Systolic 130 mmHg BP Diastolic 82 mmHg Heart Rate 80 /min Respiratory Rate 20 /min Height 64 inches 5'4" Weight 231.00 lb Pain Level 7 Pain at this time. Pain Level With Medicine 6 on average with meds Pain Level Without Medicine 9 without meds BMI (Body Mass Index) 39.6 kg/m2 Results Description No Information Available Procedures Description No Information Available Medical Devices Description No Information Available Encounters Type Date Location Provider Dx Diagnosis Office Visit 06/03/2019 Main Office as Of Michael Root DO G89.21 Chronic pain due 9:15a 07/06/13 MPH to trauma M54.5 Low back pain Z79.891 [facility] (current) use of opiate analgesic Z79.891 [facility] (current) use of opiate analgesic Office Visit 05/13/2019 9:30a Main Office as Michael Root G89.21 Chronic pain due Of 07/06/13 , MPH to trauma M54.5 Low back pain Z79.891 [facility] (current) use of opiate analgesic Z79.891 [facility] (current) use of opiate analgesic Office Visit 04/05/2019 9:15a Main Office as Michael Root G89.21 Chronic pain due Of 07/06/13 DO, MPH to trauma M54.5 Low back pain Z79.891 [facility] (current) use of opiate analgesic Z79.891 [facility] (current) use of opiate analgesic Office Visit 03/05/2019 9:30a Main Office as Michael Root G89.21 Chronic pain due Of 07/06/13 DO, MPH to trauma M54.5 Low back pain Z79.891 [facility] (current) use of opiate analgesic Z79.891 [facility] (current) use of opiate analgesic Office Visit 02/01/2019 9:45a Main Office as Michael Root G89.21 Chronic pain due Of 07/06/13 DO, MPH to trauma M54.5 Low back pain Z79.891 [facility] (current) use of opiate analgesic Z79.891 [facility] (current) use of opiate analgesic Office Visit 01/02/2019 9:30a Main Office as Michael Root G89.21 Chronic pain due Of 07/06/13 DO, MPH to trauma M54.5 Low back pain Z79.891 [facility] (current) use of opiate analgesic Z79.891 [facility] (current) use of opiate analgesic Assessments Date Code Description Provider 07/01/2019 G89.21 Chronic pain due to trauma [...] pain Root, Michael, DO, MPH 06/03/2019 Z79.891 [facility] (current) use of opiate analgesic Root, Michael , DO, MPH 06/03/2019 Z79.891 [facility] (current) use of opiate analgesic Root, Michael , DO, MPH 05/13/2019 G89.21 Chronic pain due to trauma Root, Michael, DO, MPH 05/13/2019 M54.5 Low back pain Root, Michael, DO, MPH 05/13/2019 Z79.891 [facility] (current) use of opiate analgesic Root, Michael , DO, MPH 05/13/2019 Z79.891 [facility] (current) use of opiate analgesic Root, Michael , DO, MPH 04/05/2019 G89.21 Chronic pain due to trauma Root, Michael, DO, MPH 04/05/2019 M54.5 Low back pain Root, Michael, DO, MPH 04/05/2019 Z79.891 [facility] (current) use of opiate analgesic Root, Michael , DO, MPH 04/05/2019 Z79.891 [facility] (current) use of opiate analgesic Root, Michael , DO, MPH 03/05/2019 G89.21 Chronic pain due to trauma Root, Michael, DO, MPH 03/05/2019 M54.5 Low back pain Root, Michael, DO, MPH 03/05/2019 Z79.891 [facility] (current) use of opiate analgesic Root, Michael , DO, MPH 03/05/2019 Z79.891 [facility] (current) use of opiate analgesic Root, Michael , DO, MPH 02/01/2019 G89.21 Chronic pain due to trauma Root, Michael, DO, MPH 02/01/2019 M54.5 Low back pain Root, Michael, DO, MPH 02/01/2019 Z79.891 [facility] (current) use of opiate analgesic Root, Michael , DO, MPH 02/01/2019 Z79.891 [facility] (current) use of opiate analgesic Root, Michael , DO, MPH 01/02/2019 G89.21 Chronic pain due to trauma Root, Michael, DO, MPH 01/02/2019 M54.5 Low back pain Root, Michael, DO, MPH 01/02/2019 Z79.891 [facility] (current) use of opiate analgesic Root, Michael , DO, MPH 01/02/2019 Z79.891 [facility] (current) use of opiate analgesic Michael Root DO, MPH Plan of Treatment Future Appointment(s):07/30/2019 9:00 am - Michael Root DO, MPH at Main Office as Of 07/06/1400 - Michael Root DO, MPHG89.21 Chronic pain due to traumaComments:Chronic. Symptoms and complaints discussed and reviewed today. No significant changes in physical findings. Continue current medical pain management.M54.5 Low back painComments:Chronic. Symptoms and complaints discussed and reviewed today.No changes in physical findings. Patient is stable and comfortable when current medical therapy is rendered.Z79.891 [facility] ( current) use of opiate analgesicNew Labs:Urine [...] and ongoing re-assessment of opioid therapy. Per [place] [employer], [place] Non- Acute Pain Medical Treatment Guidelines, section [...] while maintaining satisfactory side effect profile andminimizing correction end-organ damage. Importance of regular nutrition throughout the day discussed.Activity as toleratedContinue with PCP Functional Status Description No Information Available Mental Status Description No Information Available Referrals Description No Information Available
[2019-08-17 11:56] VITALS: BP 143/66
--- NOTE | 2019-08-17 12:41 | UC ---
Knee Pain HPI - HPI Summary HPI Summary: "twisted or did something to her left knee in the night--patient has no known trauma does had a history of DJD, she is taking oxycodone 5 mg 5 times a day rx by Dr. Root patient reports this morning she has not had much relef - History of Current Complaint Chief Complaint: UCGeneralIllness Stated Complaint: KNEE PAIN Time Seen by Provider: 08/17/19 12:40 Hx Obtained From: Patient Hx Last Menstrual Period: Years ago. ?: No Onset/Duration: Sudden Onset, Lasting Days - 1 Severity Initially: Severe Severity Currently: Severe Location Of Injury: left knee Pain Intensity: 10 Pain Scale Used: 0-10 Numeric Character: Aching, Throbbing Aggravating Factor(s): Movement, Weight Bearing Alleviating Factor(s): Nothing Associated Signs And Symptoms: Positive: Swelling - chronic -no worse than usual Able to Bear Weight: Yes - with pain - Allergies/Home Medications Allergies/Adverse Reactions: Allergies Allergy/AdvReac Type Severity Reaction Status Date / Time latex Allergy Swelling Verified 08/17/19 11:57 Penicillins Allergy Hives Verified 08/17/19 11:57 Home Medications: Home Medications Lisinopril TAB* [Prinivil TAB 10 MG*] 20 mg PO QAM 07/19/12 [History Confirmed 02/01/19] amLODIPine TAB* [Norvasc 5 mg TAB*] 5 mg PO QAM 07/19/12 [History Confirmed ] metFORMIN* [Glucophage 500 MG TAB *] 500 mg PO BID 07/19/12 [History Confirmed 02/01/19] Albuterol/Ipratropium NEB.DEBBIE* [Duoneb (Albuterol 2.5 MG/Ipratropium 0.5 MG)] 1 neb INH QID PRN 03/03/15 [History Confirmed 02/01/19] Aspirin EC TAB* [Ecotrin EC Low Dose 81 MG*] 81 mg PO QAM 03/03/15 [History Confirmed 02/01/19] oxyCODONE TAB* [Roxycodone TAB 5 mg*] 5 mg PO .Q4-6H MDD 20 mg 03/03/15 [ History Confirmed 02/01/19] Cholecalciferol TAB* [Vitamin D TAB*] 2,000 units PO DAILY 03/22/17 [History Confirmed 02/01/19] Pregabalin 100 mg CAP (*) [Lyrica 100 mg CAP (*)] 150 mg PO TID 03/22/17 [ History Confirmed 02/01/19] Ropinirole TAB* [Requip TAB*] 0.5 mg PO DAILY 03/22/17 [History Confirmed ] Simvastatin TAB(NF) [Zocor 20 MG (NF)] 20 mg PO BEDTIME 03/22/17 [History Confirmed 02/01/19] rOPINIRole TAB* [Requip TAB*] 1 mg PO BEDTIME 03/22/17 [History Confirmed ] tiZANidine TAB* [Zanaflex TAB*] 2 mg PO QID 03/22/17 [History Confirmed 02/01/19 ] Tiotropium CAPSULE (NF) [Spiriva CAPSULE (NF)] 1 cap INH DAILY #30 cap.inh 03/25 [Rx Confirmed 02/01/19] Benzonatate CAP* [Tessalon 100 MG CAP*] 100 mg PO TID PRN #21 cap 02/01/19 [Rx] DOXYcycline CAP(*) [DOXYcycline 100MG CAP(*)] 100 mg PO BID #20 cap 02/01/19 [Rx ] PMH/Surg Hx/FS Hx/Imm Hx Previously Healthy: No Endocrine History: Diabetes Cardiovascular History: Hypertension Other Psychological History: Chronic pain Other History Of: Anticoagulant Therapy - ASA Negative For: HIV, Hepatitis B, Hepatitis C - Surgical History Surgical History: Yes Surgery Procedure, Year, and Place: 1979 OOPHORECTOMY (UNSURE WHICH ONE), [facility] [place]. 1987 HYSTERECTOMY, [facility] [place]. 1968, 1970, 1972 3 CSECTIONS, [facility] [place]. 1986, 2001, 2014 3 BACK SURGERIES, [place]. 2007 ACDF C5-7, [facility] [place], - Family History Known Family History: Positive: Hypertension, Diabetes Family History: father - heart disease, mother - [place] - Social History Occupation: Retired Lives: With Family Alcohol Use: None Substance Use Type: Prescribed Smoking Status (MU): Light Every Day Tobacco Smoker Type: Cigarettes Amount Used/How Often: 5 - 6 CIG/DAY FOR APPROX 44 YEARS Length of Time of Smoking/Using Tobacco: 44 YEARS Have You Smoked in the Last Year: Yes Household Exposure Type: Cigarettes - Immunization History Most Recent Influenza Vaccination: 2016/2017 flu season Most Recent Tetanus Shot: unknown Most Recent Pneumonia Vaccination: 2016 Review of Systems All Other Systems Reviewed And Are Negative: Yes Constitutional: Positive: Negative Skin: Positive: Negative Eyes: Positive: Negative ENT: Positive: Negative Respiratory: Positive: Negative Cardiovascular: Positive: Negative Gastrointestinal: Positive: Negative Genitourinary: Positive: Negative Motor: Positive: Other - left knee hurts to wb can only touch toe to the ground Neurovascular: Positive: Negative Musculoskeletal: Positive: Arthralgia - medial left knee. Negative: Calf Tenderness, Decreased ROM Neurological/Mental Status: Positive: Negative Psychological: Positive: Negative Is Patient Immunocompromised?: No Physical Exam Triage Information Reviewed: Yes Appearance: Well-Appearing, Pain Distress, Obese Vital Signs: Initial Vital Signs Temp 97.7 F 08/17/19 11:53 Pulse 85 08/17/19 11:53 Resp 17 08/17/19 11:53 BP 143/66 08/17/19 11:53 Pulse Ox 84 08/17/19 11:53 Vital Signs Reviewed: Yes Eye Exam: Normal Eyes: Positive: Conjunctiva Clear ENT Exam: Normal ENT: Positive: Normal ENT inspection, Hearing grossly normal. Negative: Trismus , Muffled voice, Hoarse voice Dental Exam: Normal Neck exam: Normal Neck: Positive: Supple, Nontender Respiratory Exam: Normal Respiratory: Positive: Chest non-tender, Lungs clear, Normal breath sounds, No respiratory distress, No accessory muscle use Cardiovascular Exam: Normal Cardiovascular: Positive: RRR, No Murmur, Pulses Normal, Brisk Capillary Refill Musculoskeletal: Positive: ROM Intact - passive, Strength Limited @ - left knee , Edema @ - chronic left knee Neurological Exam: Normal Neurological: Positive: Alert, Muscle Tone Normal Psychological Exam: Normal Skin Exam: Normal Diagnostics - Radiology No standard instances Radiology Interpretation Completed By: ED Physician - arthritis moderate-sever Knee Pain Course/Dx - Course Course Of Treatment: ice/heat for comfort, continue pain meds as rx referral to orthopedic MD - Differential Dx/Diagnosis Provider Diagnosis: Arthritis of left knee, Hypertension Discharge ED - Sign-Out/Discharge Documenting (check all that apply): Patient Departure All imaging exams completed and their final reports reviewed: Yes - Discharge Plan Condition: Stable Disposition: HOME Patient Education Materials: Osteoarthritis (ED), Swollen Knee Joint (ED), Hypertension (ED) Referrals: Aden Murphy MD [Primary Care Provider] - 2 Weeks Yue Martínez MD [Medical Doctor] - 3 Days () - Billing Disposition and Condition Condition: STABLE Disposition: Home
== END 2019-08-17 13:45 | disposition home or self-care (01) ==
LOC: UCEAST 11:40
DX: M13.862 Other specified arthritis, left knee (principal); I10 Essential (primary) hypertension; M19.90 Unspecified osteoarthritis, unspecified site; G89.29 Other chronic pain; E11.9 Type 2 diabetes mellitus without complications; F17.210 Nicotine dependence, cigarettes, uncomplicated; Z79.891 Long term (current) use of opiate analgesic; Z91.040 Latex allergy status; Z88.0 Allergy status to penicillin; Z79.82 Long term (current) use of aspirin; Z79.84 Long term (current) use of oral hypoglycemic drugs; Z79.899 Other long term (current) drug therapy
CPT/HCPCS: 99211; G0463

== ENCOUNTER 2020-03-10 06:27 | Observation (INO) ==
[~2020-03-10 06:27] MED LIST: Buffered Lidocaine 1% SYRIN 1 ml INTRADERM ONE; Lactated Ringers 1000 ml BAG 1,000 ML IV SCH
[2020-03-10] MEDS ORDERED: Clindamycin 900 MG/D5W BAG 900 MG/50 ML BAG IVPB ONE (06:44)
[2020-03-10] MEDS ORDERED: ROPIVACAINE 5 MG/ML 30 ML BTL (0.5%) ONE ×2 (07:05→07:19)
[2020-03-10] MEDS ORDERED: fentaNYL 100 mcg/2 ml 50 MCG/ML VIAL ONE ×2 (07:18→08:13)
[2020-03-10] MEDS ORDERED: Dexamethasone IV 4 MG/ML VIAL 1 ml VIAL ONE (07:19)
[2020-03-10] MEDS ORDERED: Dexmedetomidine 200 mcg/2 ml 2 ml VIAL (200 mcg) ONE (07:19)
[2020-03-10] MEDS ORDERED: Lidocaine 2% PF 5 ML VIAL ONE (07:20)
[2020-03-10] MEDS ORDERED: Bupivacaine 0.5% SDV PF 30ML VIAL ONE (07:21)
[2020-03-10] MEDS ORDERED: Levalbuterol 1.25MG/0.5ML NEB.SOL INH ONE (07:41)
[2020-03-10] MEDS ORDERED: Levalbuterol 1.25MG/0.5ML NEB.SOL ONE (07:44)
[2020-03-10] MEDS ORDERED: DiMENhydriNATE IV 50 mg/ml 1 ml VIAL IV PUSH PRN (09:15)
[2020-03-10] MEDS ORDERED: Levalbuterol 1.25MG/0.5ML NEB.SOL INH PRN (09:15)
[2020-03-10] MEDS ORDERED: Naloxone 0.4 mg VIAL 0.4 mg/ml 1 ml VIAL IV PRN (09:15)
[2020-03-10] MEDS ORDERED: Ondansetron 4 mg VIAL 2 MG/ML 2 ml VIAL IV PRN (09:46)
[2020-03-10] MEDS ORDERED: oxyCODONE/Acetamin 5/325 mg TAB PO PRN (09:46)
[2020-03-10] MEDS ORDERED: Ondansetron ODT 4 mg TAB 4 MG TAB PO PRN (09:46)
[2020-03-10] MEDS ORDERED: diPHENhydraMINE 25 mg TAB PO PRN (09:46)
[2020-03-10] MEDS ORDERED: Magnesium Hydroxide LIQ 30 ML UDC PO PRN (09:46)
[2020-03-10] MEDS ORDERED: diPHENhydraMINE IV 50 MG/ML 1 ml VIAL (BENADRYL) IV PRN (09:46)
[2020-03-10] MEDS ORDERED: Lactulose 30 ml UDC PO PRN (09:46)
[2020-03-10] MEDS ORDERED: HYDROmorphone 1 MG/1 ML SYRINGE ONE (10:51)
[2020-03-10] MEDS: HYDROmorphone 1 MG/1 ML SYRINGE IV PRN ×5 (10:53→11:26)
[2020-03-10] MEDS ORDERED: Dextrose 50% Syringe 50 ml 25 GM/50 ML SYRINGE IV PUSH PRN (12:15)
[2020-03-10] MEDS ORDERED: Nicotine GUM 4MG FRUIT FLAVOR PO PRN (12:30)
[2020-03-10] MEDS: Lactated Ringers 1000 ml BAG 1,000 ML IV SCH (13:04)
[2020-03-10] MEDS: Clindamycin 600 MG/D5W BAG 600 MG/50 ML BAG IV SCH (16:39)
[2020-03-10] MEDS: oxyCODONE/Acetamin 5/325 mg TAB PO PRN ×2 (19:00→23:24)
[2020-03-10] MEDS: Magnesium Hydroxide LIQ 30 ML UDC PO SCH (20:39)
[2020-03-11] MEDS: Clindamycin 600 MG/D5W BAG 600 MG/50 ML BAG IV SCH ×2 (00:05→09:04)
[2020-03-11] MEDS: Lactated Ringers 1000 ml BAG 1,000 ML IV SCH (03:58)
[2020-03-11 06:18] LABS: Hematocrit 47 % (35-47); Hemoglobin 14.4 g/dL (12.0-16.0); Mean Platelet Volume 10.6 fL (7.4-10.4); Platelet Count 120 10^3/uL (150-450)
[2020-03-11 06:24] LABS: Calcium 8.9 mg/dL (8.6-10.3); Potassium 4.2 mmol/L (3.5-5.0)
[2020-03-11 06:29] LABS: EGFR African American 95.6 (>60)
[2020-03-11] MEDS: oxyCODONE/Acetamin 5/325 mg TAB PO PRN ×3 (07:19→20:57)
[2020-03-11] MEDS: Magnesium Hydroxide LIQ 30 ML UDC PO SCH ×2 (09:09→20:57)
[2020-03-11] MEDS: Vitamin THERAPEUTIC TAB PO SCH (09:10)
[2020-03-11] MEDS: Aspirin EC 81 mg TAB.EC (enteric coated) PO SCH (09:10)
[2020-03-11] MEDS: Albuterol/Ipratropium NEB.SOL (2.5/0.5 MG) 3 ML NEB.SOLN INH PRN (14:55)
[2020-03-12] MEDS: oxyCODONE/Acetamin 5/325 mg TAB PO PRN (07:52)
[2020-03-12] MEDS: Albuterol/Ipratropium NEB.SOL (2.5/0.5 MG) 3 ML NEB.SOLN INH PRN (07:57)
[2020-03-12 07:59] LABS: Hematocrit 47 % (35-47); Hemoglobin 14.9 g/dL (12.0-16.0); Mean Platelet Volume 10.7 fL (7.4-10.4); Platelet Count 121 10^3/uL (150-450)
[2020-03-12] MEDS: Vitamin THERAPEUTIC TAB PO SCH (09:30)
[2020-03-12] MEDS: Aspirin EC 81 mg TAB.EC (enteric coated) PO SCH (09:30)
[2020-03-12] MEDS: Magnesium Hydroxide LIQ 30 ML UDC PO SCH (09:31)
[2020-03-12] MEDS ORDERED: Benzocaine/Menthol LOZ MT PRN (11:25)
[2020-03-12 16:05] VITALS: BP 110/75
== END 2020-03-12 17:25 | disposition home health service (06) | DRG 470 ==
LOC: OR 06:27 → SSU 09:46 → INTOOBSV 09:46
PROVIDERS: ADMIT Orthopaedic Surgery Adult Reconstructive Orthopaedic Surgery; ATTEND Orthopaedic Surgery Adult Reconstructive Orthopaedic Surgery

== ENCOUNTER 2020-03-13 12:49 | Inpatient (IN) ==
[2020-03-13] MEDS ORDERED: Albuterol 2.5mg/3 ml (0.083%) NEB.SOLN INH ONE (12:59)
[2020-03-13] MEDS ORDERED: NS 0.9% 1000 ml BAG 1,000 ML IV ONE (12:59)
[2020-03-13] MEDS ORDERED: oxyCODONE/Acetamin 5/325 mg TAB PO ONE (13:01)
[2020-03-13 15:24] LABS: ABS Basophils 0.1 10^3/ul (0-0.2); ABS Eosinophils 0.1 10^3/ul (0-0.6); ABS Lymphocytes 1.9 10^3/ul (1.0-4.8); ABS Monocytes 1.3 10^3/ul (0-0.8); Hematocrit 43 % (35-47); Hemoglobin 13.2 g/dL (12.0-16.0); Mean Corpuscular HGB Conc 31 g/dL (31-36); Mean Corpuscular Hemoglobin 27 pg (27-31); Mean Corpuscular Volume 87 fL (80-97); Mean Platelet Volume 11.3 fL (7.4-10.4); Platelet Count 139 10^3/uL (150-450); Red Cell Distribution Width 17 % (10-15); White Blood Count 14.5 10^3/uL (3.5-10.8)
[2020-03-13 15:39] LABS: ALT 11 U/L (7-52); Albumin 3.4 g/dL (3.2-5.2); Alkaline Phosphatase 67 U/L (34-104); BUN/Creatinine Ratio 27.5 (8-20); Blood Urea Nitrogen 22 mg/dL (6-24); C Reactive Protein 189.68 mg/L (<8.01); CO2 Carbon Dioxide 32 mmol/L (22-32); Calcium 8.8 mg/dL (8.6-10.3); Chloride 99 mmol/L (101-111); EGFR African American 86.1 (>60); EGFR Non-African American 71.1 (>60); Globulin 3.3 g/dL (2-4); Glucose 103 mg/dL (70-100); Sodium 135 mmol/L (135-145); Total Protein 6.7 g/dL (6.4-8.9)
[2020-03-13 15:40] LABS: Activated Partial Thrombo Time 28.6 seconds (26.0-38.0); INR 1.11 (0.82-1.09)
[2020-03-13 15:55] LABS: Troponin I 0.03 ng/mL (<0.03)
[2020-03-13 16:12] LABS: Anion Gap 4 mmol/L (2-11); Potassium 4.9 mmol/L (3.5-5.0)
[2020-03-13 16:20] LABS: AST 15 U/L (13-39)
[2020-03-13] MEDS ORDERED: Iodixanol (CONTRAST) 320 MG/ML 100 ML SDV IV ONE (16:46)
[2020-03-13 16:59] LABS: Urine Appearance Cloudy; Urine Bilirubin Negative (Negative); Urine Blood Negative (Negative); Urine Color Amber; Urine Glucose Negative (Negative); Urine Ketones Negative (Negative); Urine Nitrite Negative (Negative); Urine Protein 1+(30 mg/dL) (Negative); Urine Specific Gravity 1.024 (1.010-1.030); Urine Urobilinogen Negative (Negative)
[2020-03-13 17:03] LABS: Urine Bacteria 1+ (Absent); Urine Red Blood Cell 1+(3-5/hpf) (Absent); Urine Squamous Epithelial Cell Present (Absent); Urine White Blood Cell 1+(6-10/hpf) (Absent)
[2020-03-13] MEDS ORDERED: Azithromycin 500 mg/250 ml NS 500 MG/250 ML BAG IVPB ONE (18:16)
[2020-03-13] MEDS ORDERED: cefTRIAXone 1 gm/50 mL NS BAG 1 GM/50 ML BAG IV ONE (18:16)
[2020-03-13] MEDS ORDERED: Heparin 5000 UNITS/ML 1 mL VIAL SUBCUT SCH (22:00)
[2020-03-13] MEDS ORDERED: Insulin ISOPH/REG 70/30 SUBCUT ONE (22:22)
[2020-03-13] MEDS: Albuterol/Ipratropium NEB.SOL (2.5/0.5 MG) 3 ML NEB.SOLN INH SCH (23:17)
[2020-03-14 04:23] LABS: ABS Basophils 0.1 10^3/ul (0-0.2); ABS Eosinophils 0.2 10^3/ul (0-0.6); ABS Lymphocytes 1.7 10^3/ul (1.0-4.8); ABS Monocytes 1.1 10^3/ul (0-0.8); ABS Neutrophils 8.5 10^3/ul (1.5-7.7); Eosinophil % 1.3 %; Hematocrit 43 % (35-47); Hemoglobin 13.1 g/dL (12.0-16.0); Lymphocyte % 14.5 %; Mean Corpuscular HGB Conc 31 g/dL (31-36); Mean Corpuscular Hemoglobin 27 pg (27-31); Mean Corpuscular Volume 86 fL (80-97); Platelet Count 157 10^3/uL (150-450); Red Blood Count 4.93 10^6 /uL (3.70-4.87); Red Cell Distribution Width 17 % (10-15); White Blood Count 11.4 10^3/uL (3.5-10.8)
[2020-03-14] MEDS: Albuterol/Ipratropium NEB.SOL (2.5/0.5 MG) 3 ML NEB.SOLN INH SCH (07:48)
[2020-03-14] MEDS: Albuterol HFA INHALER 8 gm MDI INH SCH ×4 (08:34→19:25)
[2020-03-14] MEDS ORDERED: Aspirin EC 81 mg TAB.EC (enteric coated) PO SCH (09:00)
[2020-03-14] MEDS: Cholecalciferol (VIT D3) 1,000 unit TAB PO SCH (09:47)
[2020-03-14] MEDS ORDERED: Albuterol HFA INHALER 8 gm MDI INH SCH (11:00)
[2020-03-14] MEDS: cefTRIAXone 1 gm/50 mL NS BAG 1 GM/50 ML BAG IVPB SCH (19:59)
[2020-03-15 04:40] LABS: ABS Basophils 0.1 10^3/ul (0-0.2); ABS Eosinophils 0.3 10^3/ul (0-0.6); ABS Lymphocytes 1.7 10^3/ul (1.0-4.8); ABS Neutrophils 7.5 10^3/ul (1.5-7.7); Eosinophil % 2.7 %; Hematocrit 39 % (35-47); Hemoglobin 13.2 g/dL (12.0-16.0); Lymphocyte % 15.9 %; Mean Corpuscular HGB Conc 34 g/dL (31-36); Mean Corpuscular Hemoglobin 29 pg (27-31); Mean Corpuscular Volume 86 fL (80-97); Mean Platelet Volume 10.5 fL (7.4-10.4); Platelet Count 176 10^3/uL (150-450); Red Blood Count 4.59 10^6 /uL (3.70-4.87); Red Cell Distribution Width 17 % (10-15); White Blood Count 10.6 10^3/uL (3.5-10.8)
[2020-03-15 04:57] LABS: Albumin 3.3 g/dL (3.2-5.2); Calcium 8.6 mg/dL (8.6-10.3); Magnesium 1.9 mg/dL (1.9-2.7); Potassium 4.5 mmol/L (3.5-5.0); Total Bilirubin 0.5 mg/dL (0.2-1.0)
[2020-03-15 05:03] LABS: Albumin/Globulin Ratio 1.1 (1-3); BUN/Creatinine Ratio 20.4 (8-20); EGFR African American 135.4 (>60); EGFR Non-African American 111.9 (>60); Globulin 2.9 g/dL (2-4); Total Protein 6.2 g/dL (6.4-8.9)
[2020-03-15] MEDS: Albuterol HFA INHALER 8 gm MDI INH SCH ×5 (07:52→20:36)
[2020-03-15] MEDS ORDERED: Perflutren Lipid Microsphere 3 ML VIAL ONE (08:17)
[2020-03-15] MEDS: Cholecalciferol (VIT D3) 1,000 unit TAB PO SCH (09:03)
[2020-03-15] MEDS: Tiotropium Brom/Olodaterol MDI INH SCH (15:23)
[2020-03-15] MEDS: cefTRIAXone 1 gm/50 mL NS BAG 1 GM/50 ML BAG IVPB SCH (20:13)
[2020-03-15] MEDS: Nystatin TOP POWDER 15 GM BTL TOPICAL SCH (20:22)
[2020-03-15] MEDS ORDERED: guaiFENesin 100 mg/5 ml LIQ unit dose cup PO PRN (22:18)
[2020-03-16] MEDS: Tiotropium Brom/Olodaterol MDI INH SCH (07:55)
[2020-03-16] MEDS: Albuterol HFA INHALER 8 gm MDI INH SCH (07:55)
[2020-03-16 08:09] LABS: ABS Basophils 0.1 10^3/ul (0-0.2); ABS Eosinophils 0.3 10^3/ul (0-0.6); ABS Lymphocytes 1.7 10^3/ul (1.0-4.8); ABS Neutrophils 5.9 10^3/ul (1.5-7.7); Eosinophil % 3.1 %; Hematocrit 42 % (35-47); Hemoglobin 13.7 g/dL (12.0-16.0); Lymphocyte % 18.6 %; Mean Corpuscular HGB Conc 32 g/dL (31-36); Mean Corpuscular Hemoglobin 28 pg (27-31); Mean Corpuscular Volume 85 fL (80-97); Mean Platelet Volume 9.9 fL (7.4-10.4); Platelet Count 189 10^3/uL (150-450); Red Blood Count 4.97 10^6 /uL (3.70-4.87); Red Cell Distribution Width 17 % (10-15); White Blood Count 8.9 10^3/uL (3.5-10.8)
[2020-03-16] MEDS: Cholecalciferol (VIT D3) 1,000 unit TAB PO SCH (08:17)
[2020-03-16] MEDS: Nystatin TOP POWDER 15 GM BTL TOPICAL SCH ×2 (08:18→23:15)
[2020-03-16 08:23] LABS: Albumin 3.4 g/dL (3.2-5.2); Albumin/Globulin Ratio 1.1 (1-3); BUN/Creatinine Ratio 18.8 (8-20); Calcium 8.7 mg/dL (8.6-10.3); EGFR African American 111.3 (>60); Globulin 3.2 g/dL (2-4); Magnesium 1.7 mg/dL (1.9-2.7); Potassium 4.2 mmol/L (3.5-5.0); Total Bilirubin 0.7 mg/dL (0.2-1.0); Total Protein 6.6 g/dL (6.4-8.9)
[2020-03-16] MEDS ORDERED: Albuterol HFA INHALER 8 gm MDI INH PRN (09:09)
[2020-03-16] MEDS ORDERED: Magnesium Sulfate 2 gm BAG 2 GM/50 ML BAG IVPB ONE (09:58)
[2020-03-16] MEDS ORDERED: Dextrose 50% Syringe 50 ml 25 GM/50 ML SYRINGE IV PUSH PRN (12:55)
[2020-03-16] MEDS: cefTRIAXone 1 gm/50 mL NS BAG 1 GM/50 ML BAG IVPB SCH (19:48)
[2020-03-17] MEDS: Tiotropium Brom/Olodaterol MDI INH SCH (07:57)
[2020-03-17] MEDS: Cholecalciferol (VIT D3) 1,000 unit TAB PO SCH (08:46)
[2020-03-17] MEDS: Nystatin TOP POWDER 15 GM BTL TOPICAL SCH ×2 (08:49→20:26)
[2020-03-17] MEDS ORDERED: cefTRIAXone 1 gm/50 mL NS BAG 1 GM/50 ML BAG IVPB ONE (09:05)
[2020-03-17 09:17] LABS: ABS Basophils 0.1 10^3/ul (0-0.2); ABS Eosinophils 0.1 10^3/ul (0-0.6); ABS Lymphocytes 1.6 10^3/ul (1.0-4.8); ABS Neutrophils 6.8 10^3/ul (1.5-7.7); Eosinophil % 1.5 %; Hematocrit 45 % (35-47); Hemoglobin 14.1 g/dL (12.0-16.0); Lymphocyte % 16.4 %; Mean Corpuscular HGB Conc 31 g/dL (31-36); Mean Corpuscular Hemoglobin 27 pg (27-31); Mean Corpuscular Volume 85 fL (80-97); Mean Platelet Volume 9.2 fL (7.4-10.4); Platelet Count 221 10^3/uL (150-450); Red Blood Count 5.31 10^6 /uL (3.70-4.87); Red Cell Distribution Width 17 % (10-15); White Blood Count 9.6 10^3/uL (3.5-10.8)
[2020-03-17 09:25] LABS: Albumin 3.6 g/dL (3.2-5.2); Albumin/Globulin Ratio 1.1 (1-3); BUN/Creatinine Ratio 26.8 (8-20); Calcium 8.9 mg/dL (8.6-10.3); EGFR African American 129.9 (>60); EGFR Non-African American 107.3 (>60); Globulin 3.3 g/dL (2-4); Potassium 4.2 mmol/L (3.5-5.0); Total Bilirubin 0.6 mg/dL (0.2-1.0); Total Protein 6.9 g/dL (6.4-8.9)
[2020-03-18 08:54] VITALS: BP 128/59
[2020-03-18] MEDS: Cholecalciferol (VIT D3) 1,000 unit TAB PO SCH (09:01)
== END 2020-03-18 10:55 | DRG 190 ==
LOC: ED 12:49 → ICU 20:20 → MEDTELE 03-15 16:58
PROVIDERS: ADMIT Internal Medicine Interventional Cardiology; ATTEND Pediatrics

== ENCOUNTER 2020-10-20 14:31 | Inpatient (IN) ==
[2020-10-20] MEDS ORDERED: Albuterol/Ipratropium NEB.SOL (2.5/0.5 MG) 3 ML NEB.SOLN INH ONE (15:05)
[2020-10-20] MEDS ORDERED: Magnesium Sulfate 2 gm BAG 2 GM/50 ML BAG IVPB ONE (15:06)
[2020-10-20] MEDS ORDERED: Albuterol HFA INHALER 8 gm MDI INH ONE (15:35)
[2020-10-20 15:43] LABS: ABS Basophils 0.1 10^3/ul (0-0.2); ABS Lymphocytes 1.5 10^3/ul (1.0-4.8); ABS Monocytes 1.3 10^3/ul (0-0.8); ABS Neutrophils 7.3 10^3/ul (1.5-7.7); Eosinophil % 0.4 %; Hematocrit 48 % (35-47); Mean Corpuscular HGB Conc 31 g/dL (31-36); Mean Corpuscular Hemoglobin 27 pg (27-31); Mean Corpuscular Volume 88 fL (80-97); Mean Platelet Volume 11.1 fL (7.4-10.4); Nucleated Red Blood Cells % 0.3; Platelet Count 174 10^3/uL (150-450); Red Blood Count 5.48 10^6 /uL (3.70-4.87); Red Cell Distribution Width 17 % (10-15); White Blood Count 10.3 10^3/uL (3.5-10.8)
[2020-10-20 15:56] LABS: ALT 9 U/L (7-52); Albumin 3.6 g/dL (3.2-5.2); Albumin/Globulin Ratio 1.2 (1-3); Alkaline Phosphatase 64 U/L (34-104); Blood Urea Nitrogen 20 mg/dL (6-24); C Reactive Protein 23.94 mg/L (<8.01); CO2 Carbon Dioxide 34 mmol/L (22-32); Calcium 8.8 mg/dL (8.6-10.3); Chloride 103 mmol/L (101-111); EGFR African American 87.1 (>60); EGFR Non-African American 71.9 (>60); Globulin 2.9 g/dL (2-4); Glucose 91 mg/dL (70-100); Sodium 140 mmol/L (135-145); Total Protein 6.5 g/dL (6.4-8.9)
[2020-10-20 15:58] LABS: Anion Gap 3 mmol/L (2-11)
[2020-10-20 16:21] LABS: Troponin I 0.03 ng/mL (<0.03)
[2020-10-20] MEDS ORDERED: cefTRIAXone 1 gm/50 mL NS BAG 1 GM/50 ML BAG IV ONE (17:25)
[2020-10-20] MEDS ORDERED: Azithromycin 500 mg/250 ml NS 500 MG/250 ML BAG IVPB ONE ×2 (17:25→19:00)
[2020-10-20] MEDS ORDERED: Albuterol HFA INHALER 8 gm MDI INH PRN (18:43)
[2020-10-20] MEDS ORDERED: Dextrose 50% Syringe 50 ml 25 GM/50 ML SYRINGE IV PUSH PRN (18:49)
[2020-10-20 18:50] LABS: Potassium Redraw 4.7 mmol/L (3.5-5.0)
[2020-10-20 18:55] LABS: AST Redraw 13 U/L (13-39)
[2020-10-20 19:37] LABS: Troponin I 0.03 ng/mL (<0.03)
[2020-10-21 06:28] LABS: ABS Basophils 0.1 10^3/ul (0-0.2); ABS Lymphocytes 1.7 10^3/ul (1.0-4.8); ABS Monocytes 1.2 10^3/ul (0-0.8); Eosinophil % 0.1 %; Hematocrit 49 % (35-47); Hemoglobin 14.9 g/dL (12.0-16.0); Lymphocyte % 17.2 %; Mean Corpuscular HGB Conc 31 g/dL (31-36); Mean Corpuscular Hemoglobin 27 pg (27-31); Mean Corpuscular Volume 88 fL (80-97); Nucleated Red Blood Cells % 0.4; Red Cell Distribution Width 17 % (10-15)
[2020-10-21 06:32] LABS: Blood Urea Nitrogen 18 mg/dL (6-24); CO2 Carbon Dioxide 36 mmol/L (22-32); Calcium 8.4 mg/dL (8.6-10.3); Chloride 105 mmol/L (101-111); EGFR African American 105.3 (>60); Glucose 100 mg/dL (70-100); Potassium 4.5 mmol/L (3.5-5.0); Sodium 140 mmol/L (135-145)
[2020-10-21 07:47] LABS: Mean Platelet Volume 10.3 fL (7.4-10.4); Platelet Count 164 10^3/uL (150-450)
[2020-10-21] MEDS: Aspirin EC 81 mg TAB.EC (enteric coated) PO SCH (08:55)
[2020-10-21] MEDS: Cholecalciferol (VIT D3) 1,000 unit TAB PO SCH (08:56)
[2020-10-21] MEDS ORDERED: Iodixanol (CONTRAST) 320 MG/ML 100 ML SDV IV SCH (10:21)
[2020-10-21] MEDS ORDERED: Albuterol/Ipratropium NEB.SOL (2.5/0.5 MG) 3 ML NEB.SOLN INH SCH (11:00)
[2020-10-21] MEDS: Albuterol/Ipratropium NEB.SOL (2.5/0.5 MG) 3 ML NEB.SOLN INH SCH ×2 (13:44→19:48)
[2020-10-21] MEDS ORDERED: COVID-19 VACCINE, AD26(JANSSEN)/PF 0.5 ML IM ONE (14:00)
[2020-10-21] MEDS: Nicotine PATCH 21 MG/24 HR PATCH TRANSDERM SCH (16:25)
[2020-10-21] MEDS: cefTRIAXone 1 gm/50 mL NS BAG 1 GM/50 ML BAG IVPB SCH (17:34)
[2020-10-21] MEDS: Azithromycin 500 mg/250 ml NS 500 MG/250 ML BAG IVPB SCH (19:27)
[2020-10-21] MEDS: methylPREDNISolone SOD 40 mg/ml 1 ml VIAL IV SCH (19:27)
[2020-10-22] MEDS: Albuterol/Ipratropium NEB.SOL (2.5/0.5 MG) 3 ML NEB.SOLN INH SCH ×6 (00:01→19:54)
[2020-10-22] MEDS: methylPREDNISolone SOD 40 mg/ml 1 ml VIAL IV SCH ×2 (05:04→16:53)
[2020-10-22 06:00] LABS: Calcium 8.7 mg/dL (8.6-10.3); EGFR African American 107.1 (>60); EGFR Non-African American 88.5 (>60); Magnesium 2.2 mg/dL (1.9-2.7); Phosphorus 3.6 mg/dL (2.5-5.0)
[2020-10-22 06:53] LABS: Potassium 4.8 mmol/L (3.5-5.0)
[2020-10-22 07:40] LABS: Hematocrit 50 % (35-47); Hemoglobin 15.2 g/dL (12.0-16.0); Mean Corpuscular HGB Conc 31 g/dL (31-36); Mean Corpuscular Hemoglobin 27 pg (27-31); Mean Corpuscular Volume 88 fL (80-97); Platelet Count Platelets clumped. 10^3/uL (150-450); Red Blood Count 5.64 10^6 /uL (3.70-4.87); Red Cell Distribution Width 17 % (10-15); White Blood Count 8.5 10^3/uL (3.5-10.8)
[2020-10-22] MEDS: Cholecalciferol (VIT D3) 1,000 unit TAB PO SCH (08:55)
[2020-10-22] MEDS: Aspirin EC 81 mg TAB.EC (enteric coated) PO SCH (08:56)
[2020-10-22] MEDS: Furosemide 20 mg/2 ml IV VIAL IV SLOW PU SCH (08:57)
[2020-10-22] MEDS: Nicotine PATCH 21 MG/24 HR PATCH TRANSDERM SCH (08:58)
[2020-10-22 09:17] LABS: Mean Platelet Volume 10.1 fL (7.4-10.4); Platelet Count 164 10^3/uL (150-450)
[2020-10-22] MEDS: cefTRIAXone 1 gm/50 mL NS BAG 1 GM/50 ML BAG IVPB SCH (16:54)
[2020-10-22] MEDS: Azithromycin 500 mg/250 ml NS 500 MG/250 ML BAG IVPB SCH (19:38)
[2020-10-23] MEDS: Albuterol/Ipratropium NEB.SOL (2.5/0.5 MG) 3 ML NEB.SOLN INH SCH ×3 (00:33→07:54)
[2020-10-23] MEDS: methylPREDNISolone SOD 40 mg/ml 1 ml VIAL IV SCH (06:06)
[2020-10-23] MEDS: Furosemide 20 mg/2 ml IV VIAL IV SLOW PU SCH (07:46)
[2020-10-23] MEDS: Aspirin EC 81 mg TAB.EC (enteric coated) PO SCH (07:46)
[2020-10-23] MEDS: Cholecalciferol (VIT D3) 1,000 unit TAB PO SCH (07:46)
[2020-10-23] MEDS: Nicotine PATCH 21 MG/24 HR PATCH TRANSDERM SCH (07:47)
[2020-10-23 08:30] LABS: Hematocrit 48 % (35-47); Hemoglobin 14.7 g/dL (12.0-16.0); Mean Corpuscular HGB Conc 31 g/dL (31-36); Mean Corpuscular Hemoglobin 27 pg (27-31); Mean Corpuscular Volume 87 fL (80-97); Red Blood Count 5.48 10^6 /uL (3.70-4.87); Red Cell Distribution Width 18 % (10-15); White Blood Count 9.6 10^3/uL (3.5-10.8)
[2020-10-23 08:32] LABS: Calcium 8.8 mg/dL (8.6-10.3); EGFR African American 88.3 (>60)
[2020-10-23 08:56] LABS: Potassium 4.6 mmol/L (3.5-5.0)
[2020-10-23 09:44] LABS: ABS Lymphocytes 0.8 10^3/ul (1.0-4.8); ABS Monocytes 0.8 10^3/ul (0-0.8); ABS Nucleated RBC 0.1 10^3/ul; Lymphocyte % 8.2 %; Mean Platelet Volume 10.6 fL (7.4-10.4); Nucleated Red Blood Cells % 0.9; Platelet Count 167 10^3/uL (150-450)
[2020-10-23 11:35] VITALS: BP 126/55
== END 2020-10-23 11:54 | disposition home health service (06) | DRG 190 ==
LOC: ED 14:31 → MEDTELE 14:31
PROVIDERS: ADMIT Hospitalist; ATTEND Internal Medicine

== ENCOUNTER 2021-04-02 13:08 | Inpatient (IN) ==
[2021-04-02] MEDS ORDERED: Lactated Ringers 1000 ml BAG 1,000 ML IV ONE (13:48)
[2021-04-02 14:37] LABS: Activated Partial Thrombo Time 25.5 seconds (26.0-38.0); INR 1.04 (0.86-1.15)
[2021-04-02 14:39] LABS: Troponin I 0.01 ng/mL (<0.03)
[2021-04-02] MEDS ORDERED: fentaNYL 100 mcg/2 ml 50 MCG/ML VIAL IV SLOW PU ONE ×2 (14:47→18:56)
[2021-04-02 15:08] LABS: Urine Appearance Cloudy; Urine Bilirubin Negative (Negative); Urine Blood Negative (Negative); Urine Color Yellow; Urine Glucose Negative (Negative); Urine Ketones Trace (Negative); Urine Nitrite Negative (Negative); Urine Protein 1+(30 mg/dL) (Negative); Urine Specific Gravity 1.029 (1.002-1.030); Urine Urobilinogen Negative (Negative)
[2021-04-02 15:13] LABS: Urine Bacteria 1+ (Absent); Urine Red Blood Cell Trace(0-2/hpf) (Absent); Urine Squamous Epithelial Cell Present (Absent); Urine White Blood Cell 3+(>20/hpf) (Absent)
[2021-04-02 15:14] LABS: ALT 11 U/L (7-52); Albumin 4.2 g/dL (3.2-5.2); Albumin/Globulin Ratio 1.3 (1-3); Alkaline Phosphatase 116 U/L (35-149); Anion Gap 6 mmol/L (2-11); Blood Urea Nitrogen 34 mg/dL (6-24); C Reactive Protein 51.69 mg/L (<8.01); CO2 Carbon Dioxide 19 mmol/L (22-32); Calcium 8.7 mg/dL (8.6-10.3); Chloride 101 mmol/L (101-111); Creatine Kinase 149 U/L (10-223); Globulin 3.3 g/dL (2-4); Glucose 73 mg/dL (70-100); Sodium 126 mmol/L (135-145); Total Protein 7.5 g/dL (6.4-8.9)
[2021-04-02] MEDS ORDERED: Iodixanol (CONTRAST) 320 MG/ML 100 ML SDV IV ONE (15:28)
[2021-04-02 15:38] LABS: ABS Basophils 0.1 10^3/ul (0-0.2); ABS Eosinophils 0.1 10^3/ul (0-0.6); ABS Lymphocytes 1.4 10^3/ul (1.0-4.8); ABS Monocytes 0.8 10^3/ul (0-0.8); ABS Neutrophils 10.7 10^3/ul (1.5-7.7); Eosinophil % 0.5 %; Hematocrit 39 % (35-47); Hemoglobin 12.7 g/dL (12.0-16.0); Lymphocyte % 10.5 %; Mean Corpuscular HGB Conc 32 g/dL (31-36); Mean Corpuscular Hemoglobin 28 pg (27-31); Mean Corpuscular Volume 89 fL (80-97); Mean Platelet Volume 10.7 fL (7.4-10.4); Nucleated Red Blood Cells % 0.1; Platelet Count 164 10^3/uL (150-450); Red Blood Count 4.45 10^6 /uL (3.70-4.87); Red Cell Distribution Width 17 % (10-15)
[2021-04-02] MEDS ORDERED: Dexamethasone IV 4 MG/ML VIAL 1 ml VIAL IV SLOW PU SCH (17:00)
[2021-04-02 18:03] LABS: Rapid COVID-19 Molecular Undetected (Undetected)
[2021-04-02] MEDS ORDERED: cefTRIAXone 1 gm/50 mL NS BAG 1 GM/50 ML BAG IV ONE (18:25)
[2021-04-02] MEDS ORDERED: Dextrose 50% Syringe 50 ml 25 GM/50 ML SYRINGE IV PUSH PRN (21:20)
[2021-04-02] MEDS ORDERED: Albuterol HFA INHALER 8 gm MDI INH PRN (23:45)
[2021-04-03] MEDS ORDERED: Dexamethasone IV 4 MG/ML VIAL 1 ml VIAL IV SLOW PU SCH
[2021-04-03] MEDS: Enoxaparin 40 MG/0.4 ML SYR SUBCUT SCH ×2 (00:35→22:44)
[2021-04-03] MEDS: Dexamethasone IV 4 MG/ML VIAL 1 ml VIAL IV SLOW PU SCH ×5 (00:35→22:46)
[2021-04-03] MEDS: NS 0.9% 1000 ml BAG 1,000 ML IV SCH (03:31)
[2021-04-03 04:33] LABS: Magnesium 1.8 mg/dL (1.9-2.7)
[2021-04-03 06:45] LABS: ABS Lymphocytes 0.7 10^3/ul (1.0-4.8); ABS Monocytes 0.1 10^3/ul (0-0.8); ABS Neutrophils 7.7 10^3/ul (1.5-7.7); Hematocrit 43 % (35-47); Hemoglobin 13.9 g/dL (12.0-16.0); Mean Corpuscular HGB Conc 33 g/dL (31-36); Mean Corpuscular Hemoglobin 29 pg (27-31); Mean Corpuscular Volume 90 fL (80-97); Mean Platelet Volume 10.6 fL (7.4-10.4); Platelet Count 175 10^3/uL (150-450); Red Blood Count 4.76 10^6 /uL (3.70-4.87); Red Cell Distribution Width 17 % (10-15); White Blood Count 8.5 10^3/uL (3.5-10.8)
[2021-04-03 06:56] LABS: Potassium 5.8 mmol/L (3.5-5.0); Potassium Redraw 5.8 mmol/L (3.5-5.0)
[2021-04-03] MEDS ORDERED: Sodium Polystyrene ORAL.SUSP 15 GM/60 ML BTL PO ONE (07:58)
[2021-04-03] MEDS ORDERED: Nicotine GUM 4MG FRUIT FLAVOR PO PRN (08:11)
[2021-04-03] MEDS: SPIRIVA Respimat (tiotropium) 2.5 mcg/inh Inhaler INH SCH (08:15)
[2021-04-03] MEDS ORDERED: Magnesium Sulfate 2 gm BAG 2 GM/50 ML BAG IVPB ONE (08:26)
[2021-04-03] MEDS ORDERED: Morphine 2 MG/ML SYRINGE IV ONE (08:53)
[2021-04-03] MEDS ORDERED: Gadoteridol (CONTRAST) 279.3 MG/ML 10 ML IV ONE (10:27)
[2021-04-03] MEDS: Aspirin EC 81 mg TAB.EC (enteric coated) PO SCH (12:30)
[2021-04-03] MEDS: Cholecalciferol (VIT D3) 1,000 unit TAB PO SCH (12:30)
[2021-04-03] MEDS ORDERED: Iodixanol (CONTRAST) 320 MG/ML 100 ML SDV IV ONE (15:27)
[2021-04-03] MEDS: Nystatin TOP POWDER 15 GM BTL TOPICAL SCH (18:30)
[2021-04-03] MEDS: cefTRIAXone 1 gm/50 mL NS BAG 1 GM/50 ML BAG IVPB SCH (23:02)
[2021-04-04] MEDS: Nystatin TOP POWDER 15 GM BTL TOPICAL SCH ×3 (00:13→22:45)
[2021-04-04] MEDS: NS 0.9% 1000 ml BAG 1,000 ML IV SCH ×2 (01:14→13:00)
[2021-04-04] MEDS ORDERED: Morphine 2 MG/ML SYRINGE IV ONE (02:14)
[2021-04-04] MEDS: Dexamethasone IV 4 MG/ML VIAL 1 ml VIAL IV SLOW PU SCH ×3 (05:34→17:27)
[2021-04-04 06:50] LABS: ABS Lymphocytes 0.7 10^3/ul (1.0-4.8); ABS Monocytes 0.4 10^3/ul (0-0.8); ABS Neutrophils 9.2 10^3/ul (1.5-7.7); Hematocrit 40 % (35-47); Hemoglobin 13.1 g/dL (12.0-16.0); Lymphocyte % 6.4 %; Mean Corpuscular HGB Conc 33 g/dL (31-36); Mean Corpuscular Hemoglobin 29 pg (27-31); Mean Corpuscular Volume 88 fL (80-97); Mean Platelet Volume 10.5 fL (7.4-10.4); Nucleated Red Blood Cells % 0.1; Platelet Count 195 10^3/uL (150-450); Red Blood Count 4.51 10^6 /uL (3.70-4.87); Red Cell Distribution Width 16 % (10-15); White Blood Count 10.3 10^3/uL (3.5-10.8)
[2021-04-04 06:55] LABS: Calcium 8.5 mg/dL (8.6-10.3); Potassium 4.3 mmol/L (3.5-5.0)
[2021-04-04] MEDS: Cholecalciferol (VIT D3) 1,000 unit TAB PO SCH (08:18)
[2021-04-04] MEDS: Aspirin EC 81 mg TAB.EC (enteric coated) PO SCH (08:18)
[2021-04-04] MEDS: SPIRIVA Respimat (tiotropium) 2.5 mcg/inh Inhaler INH SCH (08:20)
[2021-04-04] MEDS: Morphine 2 MG/ML SYRINGE IV PRN ×3 (12:51→22:41)
[2021-04-04] MEDS: cefTRIAXone 1 gm/50 mL NS BAG 1 GM/50 ML BAG IVPB SCH (19:50)
[2021-04-04] MEDS: Enoxaparin 40 MG/0.4 ML SYR SUBCUT SCH (22:40)
[2021-04-05] MEDS: Dexamethasone IV 4 MG/ML VIAL 1 ml VIAL IV SLOW PU SCH ×5 (00:46→22:55)
[2021-04-05] MEDS: NS 0.9% 1000 ml BAG 1,000 ML IV SCH (02:46)
[2021-04-05 07:24] LABS: Hematocrit 40 % (35-47); Hemoglobin 13.2 g/dL (12.0-16.0); Mean Corpuscular HGB Conc 33 g/dL (31-36); Mean Corpuscular Hemoglobin 29 pg (27-31); Mean Corpuscular Volume 88 fL (80-97); Mean Platelet Volume 10.3 fL (7.4-10.4); Platelet Count 200 10^3/uL (150-450); Red Blood Count 4.56 10^6 /uL (3.70-4.87); Red Cell Distribution Width 16 % (10-15); White Blood Count 10.1 10^3/uL (3.5-10.8)
[2021-04-05 07:41] LABS: Calcium 8.7 mg/dL (8.6-10.3)
[2021-04-05 07:59] LABS: ABS Lymphocytes 0.8 10^3/ul (1.0-4.8); ABS Monocytes 0.6 10^3/ul (0-0.8); ABS Neutrophils 8.7 10^3/ul (1.5-7.7); Lymphocyte % 7.6 %; Nucleated Red Blood Cells % 0.1
[2021-04-05] MEDS: Aspirin EC 81 mg TAB.EC (enteric coated) PO SCH (09:37)
[2021-04-05] MEDS: Cholecalciferol (VIT D3) 1,000 unit TAB PO SCH (09:38)
[2021-04-05] MEDS: Nystatin TOP POWDER 15 GM BTL TOPICAL SCH ×2 (09:50→20:12)
[2021-04-05] MEDS: SPIRIVA Respimat (tiotropium) 2.5 mcg/inh Inhaler INH SCH (11:34)
[2021-04-05] MEDS: oxyCODONE SR 15 mg TAB PO SCH ×2 (12:09→19:55)
[2021-04-05] MEDS ORDERED: Gadoteridol (CONTRAST) 279.3 MG/ML 10 ML IV ONE (13:14)
[2021-04-05] MEDS: Enoxaparin 40 MG/0.4 ML SYR SUBCUT SCH (19:55)
[2021-04-05] MEDS: cefTRIAXone 1 gm/50 mL NS BAG 1 GM/50 ML BAG IVPB SCH (19:55)
[2021-04-06] MEDS: Dexamethasone IV 4 MG/ML VIAL 1 ml VIAL IV SLOW PU SCH ×4 (05:21→22:51)
[2021-04-06] MEDS: Nystatin TOP POWDER 15 GM BTL TOPICAL SCH ×2 (10:13→20:16)
[2021-04-06] MEDS: SPIRIVA Respimat (tiotropium) 2.5 mcg/inh Inhaler INH SCH (10:15)
[2021-04-06] MEDS: oxyCODONE SR 15 mg TAB PO SCH ×2 (12:36→20:13)
[2021-04-06] MEDS: Aspirin EC 81 mg TAB.EC (enteric coated) PO SCH (12:36)
[2021-04-06] MEDS: Cholecalciferol (VIT D3) 1,000 unit TAB PO SCH (12:36)
[2021-04-06] MEDS ORDERED: oxyCODONE SR 15 mg TAB PO ONE (13:29)
[2021-04-06] MEDS: Enoxaparin 40 MG/0.4 ML SYR SUBCUT SCH (20:16)
[2021-04-06] MEDS: cefTRIAXone 1 gm/50 mL NS BAG 1 GM/50 ML BAG IVPB SCH (20:22)
[2021-04-07] MEDS: Dexamethasone IV 4 MG/ML VIAL 1 ml VIAL IV SLOW PU SCH ×4 (05:10→21:28)
[2021-04-07] MEDS: SPIRIVA Respimat (tiotropium) 2.5 mcg/inh Inhaler INH SCH (07:43)
[2021-04-07] MEDS ORDERED: Senna TAB 8.6 mg TAB PO PRN (08:04)
[2021-04-07] MEDS: Aspirin EC 81 mg TAB.EC (enteric coated) PO SCH (08:48)
[2021-04-07] MEDS: Nystatin TOP POWDER 15 GM BTL TOPICAL SCH ×3 (09:00→21:28)
[2021-04-07] MEDS: oxyCODONE SR 15 mg TAB PO SCH ×2 (09:02→21:18)
[2021-04-07] MEDS: Cholecalciferol (VIT D3) 1,000 unit TAB PO SCH (09:02)
[2021-04-07] MEDS: Magnesium Hydroxide LIQ 30 ML UDC PO PRN (09:03)
[2021-04-07] MEDS ORDERED: fentaNYL 100 mcg/2 ml 50 MCG/ML VIAL ONE (10:07)
[2021-04-07] MEDS: Polyethylene Glycol 3350 17 GM PACKET PO PRN (12:26)
[2021-04-07] MEDS: Benzocaine (DENTAL) 10% TOP.GEL TOPICAL PRN (18:20)
[2021-04-07] MEDS: Enoxaparin 40 MG/0.4 ML SYR SUBCUT SCH (21:30)
[2021-04-08] MEDS: Benzocaine (DENTAL) 10% TOP.GEL TOPICAL PRN (03:06)
[2021-04-08] MEDS: Dexamethasone IV 4 MG/ML VIAL 1 ml VIAL IV SLOW PU SCH ×4 (04:18→23:10)
[2021-04-08] MEDS: SPIRIVA Respimat (tiotropium) 2.5 mcg/inh Inhaler INH SCH (07:34)
[2021-04-08] MEDS: Cholecalciferol (VIT D3) 1,000 unit TAB PO SCH (09:22)
[2021-04-08] MEDS: oxyCODONE SR 15 mg TAB PO SCH ×2 (09:22→21:56)
[2021-04-08] MEDS: Aspirin EC 81 mg TAB.EC (enteric coated) PO SCH (09:23)
[2021-04-08] MEDS: Polyethylene Glycol 3350 17 GM PACKET PO PRN (09:23)
[2021-04-08] MEDS: Magnesium Hydroxide LIQ 30 ML UDC PO PRN (09:23)
[2021-04-08] MEDS: Nystatin TOP POWDER 15 GM BTL TOPICAL SCH ×2 (09:59→21:26)
[2021-04-08] MEDS ORDERED: Benzocaine (DENTAL) 10% TOP.GEL TOPICAL PRN (10:53)
[2021-04-08] MEDS: Lidocaine PATCH 5% PATCH TRANSDERM SCH (11:51)
[2021-04-08] MEDS ORDERED: BENZOCAINE TOPICAL PRN (12:31)
[2021-04-08] MEDS ORDERED: MENTHOL TOPICAL PRN (12:31)
[2021-04-08] MEDS ORDERED: Prochlorperazine 5 mg/ml 2 ml VIAL (10 mg) IV PRN (16:38)
[2021-04-08] MEDS ORDERED: Ondansetron 4 mg VIAL 2 MG/ML 2 ml VIAL IV PRN (16:38)
[2021-04-08] MEDS ORDERED: Ondansetron 4 mg VIAL 2 MG/ML 2 ml VIAL ONE (16:48)
[2021-04-08] MEDS: Enoxaparin 40 MG/0.4 ML SYR SUBCUT SCH (21:25)
[2021-04-08] MEDS: Lidocaine Patch REMOVE NOTE PATCH OFF SCH (21:28)
[2021-04-09] MEDS: Dexamethasone IV 4 MG/ML VIAL 1 ml VIAL IV SLOW PU SCH ×4 (04:37→21:14)
[2021-04-09 06:09] LABS: ABS Lymphocytes 0.7 10^3/ul (1.0-4.8); ABS Monocytes 1.1 10^3/ul (0-0.8); ABS Neutrophils 14.1 10^3/ul (1.5-7.7); Hematocrit 43 % (35-47); Hemoglobin 13.8 g/dL (12.0-16.0); Lymphocyte % 4.3 %; Mean Corpuscular HGB Conc 32 g/dL (31-36); Mean Corpuscular Hemoglobin 29 pg (27-31); Mean Corpuscular Volume 88 fL (80-97); Platelet Count 171 10^3/uL (150-450); Red Blood Count 4.86 10^6 /uL (3.70-4.87); Red Cell Distribution Width 16 % (10-15); White Blood Count 15.9 10^3/uL (3.5-10.8)
[2021-04-09 06:25] LABS: Magnesium 2.2 mg/dL (1.9-2.7)
[2021-04-09 06:27] LABS: Potassium 5.7 mmol/L (3.5-5.0)
[2021-04-09] MEDS: Aspirin EC 81 mg TAB.EC (enteric coated) PO SCH (09:52)
[2021-04-09] MEDS: Cholecalciferol (VIT D3) 1,000 unit TAB PO SCH (09:53)
[2021-04-09] MEDS: oxyCODONE SR 15 mg TAB PO SCH ×2 (09:54→21:12)
[2021-04-09] MEDS: Nystatin TOP POWDER 15 GM BTL TOPICAL SCH ×2 (09:54→21:13)
[2021-04-09] MEDS: Lidocaine PATCH 5% PATCH TRANSDERM SCH (09:54)
[2021-04-09] MEDS: SPIRIVA Respimat (tiotropium) 2.5 mcg/inh Inhaler INH SCH (11:57)
[2021-04-09] MEDS: Magnesium Hydroxide LIQ 30 ML UDC PO PRN (12:19)
[2021-04-09] MEDS ORDERED: Sodium Polystyrene ORAL.SUSP 15 GM/60 ML BTL PO ONE (18:50)
[2021-04-09] MEDS: Enoxaparin 40 MG/0.4 ML SYR SUBCUT SCH (21:11)
[2021-04-09] MEDS: Lidocaine Patch REMOVE NOTE PATCH OFF SCH (21:13)
[2021-04-10] MEDS: Dexamethasone IV 4 MG/ML VIAL 1 ml VIAL IV SLOW PU SCH ×3 (04:50→17:28)
[2021-04-10 05:05] LABS: ABS Lymphocytes 0.5 10^3/ul (1.0-4.8); ABS Monocytes 1.2 10^3/ul (0-0.8); ABS Neutrophils 12.5 10^3/ul (1.5-7.7); Hematocrit 40 % (35-47); Hemoglobin 12.8 g/dL (12.0-16.0); Lymphocyte % 3.5 %; Mean Corpuscular HGB Conc 32 g/dL (31-36); Mean Corpuscular Hemoglobin 28 pg (27-31); Mean Corpuscular Volume 88 fL (80-97); Mean Platelet Volume 10.7 fL (7.4-10.4); Platelet Count 163 10^3/uL (150-450); Red Blood Count 4.51 10^6 /uL (3.70-4.87); Red Cell Distribution Width 16 % (10-15); White Blood Count 14.2 10^3/uL (3.5-10.8)
[2021-04-10 05:21] LABS: Calcium 8.5 mg/dL (8.6-10.3)
[2021-04-10] MEDS: SPIRIVA Respimat (tiotropium) 2.5 mcg/inh Inhaler INH SCH (08:00)
[2021-04-10] MEDS: Cholecalciferol (VIT D3) 1,000 unit TAB PO SCH (08:56)
[2021-04-10] MEDS: Aspirin EC 81 mg TAB.EC (enteric coated) PO SCH (08:56)
[2021-04-10] MEDS: oxyCODONE SR 15 mg TAB PO SCH (08:57)
[2021-04-10] MEDS: Nystatin TOP POWDER 15 GM BTL TOPICAL SCH ×2 (08:59→20:53)
[2021-04-10] MEDS: Lidocaine PATCH 5% PATCH TRANSDERM SCH (08:59)
[2021-04-10] MEDS ORDERED: NS 0.9% 1000 ml BAG 1,000 ML IV ONE (12:05)
[2021-04-10] MEDS: Polyethylene Glycol 3350 17 GM PACKET PO PRN (13:58)
[2021-04-10] MEDS: Magnesium Hydroxide LIQ 30 ML UDC PO PRN (13:58)
[2021-04-10] MEDS: oxyCODONE SR 20 mg TAB PO SCH (20:50)
[2021-04-10] MEDS: Enoxaparin 40 MG/0.4 ML SYR SUBCUT SCH (20:53)
[2021-04-10] MEDS: Lidocaine Patch REMOVE NOTE PATCH OFF SCH (20:53)
[2021-04-11] MEDS: Dexamethasone IV 4 MG/ML VIAL 1 ml VIAL IV SLOW PU SCH ×5 (00:05→23:52)
[2021-04-11 05:18] LABS: Hematocrit 39 % (35-47); Hemoglobin 12.6 g/dL (12.0-16.0); Mean Corpuscular HGB Conc 33 g/dL (31-36); Mean Corpuscular Hemoglobin 28 pg (27-31); Mean Corpuscular Volume 87 fL (80-97); Mean Platelet Volume 9.8 fL (7.4-10.4); Platelet Count 139 10^3/uL (150-450); Red Blood Count 4.43 10^6 /uL (3.70-4.87); Red Cell Distribution Width 16 % (10-15); White Blood Count 13.5 10^3/uL (3.5-10.8)
[2021-04-11 05:37] LABS: Calcium 8.5 mg/dL (8.6-10.3); Magnesium 2.2 mg/dL (1.9-2.7)
[2021-04-11 05:43] LABS: Potassium 5.1 mmol/L (3.5-5.0)
[2021-04-11 05:52] LABS: ABS Lymphocytes 0.5 10^3/ul (1.0-4.8); ABS Monocytes 1.3 10^3/ul (0-0.8); ABS Neutrophils 11.7 10^3/ul (1.5-7.7); Eosinophil % 0.1 %; Lymphocyte % 3.5 %
[2021-04-11] MEDS: SPIRIVA Respimat (tiotropium) 2.5 mcg/inh Inhaler INH SCH (07:47)
[2021-04-11] MEDS: Polyethylene Glycol 3350 17 GM PACKET PO PRN (07:49)
[2021-04-11] MEDS: Magnesium Hydroxide LIQ 30 ML UDC PO PRN (07:49)
[2021-04-11] MEDS: Lidocaine PATCH 5% PATCH TRANSDERM SCH (07:50)
[2021-04-11] MEDS: oxyCODONE SR 20 mg TAB PO SCH ×2 (09:05→20:50)
[2021-04-11] MEDS: Cholecalciferol (VIT D3) 1,000 unit TAB PO SCH (09:06)
[2021-04-11] MEDS: Aspirin EC 81 mg TAB.EC (enteric coated) PO SCH (09:06)
[2021-04-11] MEDS: Nystatin TOP POWDER 15 GM BTL TOPICAL SCH ×2 (09:37→20:51)
[2021-04-11 12:08] LABS: Calcium 8.3 mg/dL (8.6-10.3); Potassium 4.9 mmol/L (3.5-5.0)
[2021-04-11] MEDS: Lactulose 30 ml UDC PO PRN (12:16)
[2021-04-11] MEDS: Lidocaine Patch REMOVE NOTE PATCH OFF SCH (20:52)
[2021-04-11] MEDS: Enoxaparin 40 MG/0.4 ML SYR SUBCUT SCH (20:52)
[2021-04-12] MEDS: Dexamethasone IV 4 MG/ML VIAL 1 ml VIAL IV SLOW PU SCH ×4 (04:29→23:57)
[2021-04-12 05:25] LABS: ABS Lymphocytes 0.5 10^3/ul (1.0-4.8); ABS Monocytes 1.2 10^3/ul (0-0.8); ABS Neutrophils 11.4 10^3/ul (1.5-7.7); Hematocrit 39 % (35-47); Hemoglobin 12.3 g/dL (12.0-16.0); Lymphocyte % 3.8 %; Mean Corpuscular HGB Conc 32 g/dL (31-36); Mean Corpuscular Hemoglobin 28 pg (27-31); Mean Corpuscular Volume 89 fL (80-97); Mean Platelet Volume 10.5 fL (7.4-10.4); Platelet Count 143 10^3/uL (150-450); Red Blood Count 4.36 10^6 /uL (3.70-4.87); Red Cell Distribution Width 16 % (10-15); White Blood Count 13.1 10^3/uL (3.5-10.8)
[2021-04-12 05:47] LABS: Calcium 8.4 mg/dL (8.6-10.3); Potassium 4.9 mmol/L (3.5-5.0)
[2021-04-12] MEDS: SPIRIVA Respimat (tiotropium) 2.5 mcg/inh Inhaler INH SCH (07:28)
[2021-04-12] MEDS: Lidocaine PATCH 5% PATCH TRANSDERM SCH (08:23)
[2021-04-12] MEDS: oxyCODONE SR 20 mg TAB PO SCH ×2 (08:24→21:05)
[2021-04-12] MEDS: Cholecalciferol (VIT D3) 1,000 unit TAB PO SCH (08:24)
[2021-04-12] MEDS: Nystatin TOP POWDER 15 GM BTL TOPICAL SCH ×3 (08:25→21:06)
[2021-04-12] MEDS: Aspirin EC 81 mg TAB.EC (enteric coated) PO SCH (08:25)
[2021-04-12] MEDS: Enoxaparin 40 MG/0.4 ML SYR SUBCUT SCH (21:06)
[2021-04-12] MEDS: Lidocaine Patch REMOVE NOTE PATCH OFF SCH (21:15)
[2021-04-13] MEDS: Dexamethasone IV 4 MG/ML VIAL 1 ml VIAL IV SLOW PU SCH ×4 (04:35→23:44)
[2021-04-13] MEDS: Lidocaine PATCH 5% PATCH TRANSDERM SCH (07:52)
[2021-04-13] MEDS: Aspirin EC 81 mg TAB.EC (enteric coated) PO SCH (07:52)
[2021-04-13] MEDS: Cholecalciferol (VIT D3) 1,000 unit TAB PO SCH (07:53)
[2021-04-13] MEDS: oxyCODONE SR 20 mg TAB PO SCH ×2 (07:53→21:23)
[2021-04-13] MEDS: SPIRIVA Respimat (tiotropium) 2.5 mcg/inh Inhaler INH SCH (07:59)
[2021-04-13] MEDS: Nystatin TOP POWDER 15 GM BTL TOPICAL SCH ×2 (10:00→21:24)
[2021-04-13] MEDS: Calcium Carb (TUMS) 500 mg CHEW TAB PO PRN ×2 (14:20→20:03)
[2021-04-13] MEDS: Enoxaparin 40 MG/0.4 ML SYR SUBCUT SCH (21:24)
[2021-04-13] MEDS: Lidocaine Patch REMOVE NOTE PATCH OFF SCH (21:28)
[2021-04-14] MEDS: Dexamethasone IV 4 MG/ML VIAL 1 ml VIAL IV SLOW PU SCH ×3 (05:33→20:07)
[2021-04-14] MEDS: Cholecalciferol (VIT D3) 1,000 unit TAB PO SCH (08:09)
[2021-04-14] MEDS: oxyCODONE SR 20 mg TAB PO SCH ×2 (08:10→20:04)
[2021-04-14] MEDS: Aspirin EC 81 mg TAB.EC (enteric coated) PO SCH (08:10)
[2021-04-14] MEDS: Lidocaine PATCH 5% PATCH TRANSDERM SCH (08:10)
[2021-04-14] MEDS: Nystatin TOP POWDER 15 GM BTL TOPICAL SCH ×2 (08:11→20:58)
[2021-04-14] MEDS: SPIRIVA Respimat (tiotropium) 2.5 mcg/inh Inhaler INH SCH (08:18)
[2021-04-14] MEDS: Calcium Carb (TUMS) 500 mg CHEW TAB PO PRN (08:18)
[2021-04-14 16:33] LABS: Rapid COVID-19 Molecular Undetected (Undetected)
[2021-04-14] MEDS: Enoxaparin 40 MG/0.4 ML SYR SUBCUT SCH (20:08)
[2021-04-14] MEDS: Lidocaine Patch REMOVE NOTE PATCH OFF SCH (20:10)
[2021-04-14] MEDS: Magnesium Hydroxide LIQ 30 ML UDC PO PRN (20:16)
[2021-04-15] MEDS: SPIRIVA Respimat (tiotropium) 2.5 mcg/inh Inhaler INH SCH (07:15)
[2021-04-15] MEDS: Cholecalciferol (VIT D3) 1,000 unit TAB PO SCH (08:27)
[2021-04-15] MEDS: oxyCODONE SR 20 mg TAB PO SCH ×2 (08:28→20:27)
[2021-04-15] MEDS: Aspirin EC 81 mg TAB.EC (enteric coated) PO SCH (08:29)
[2021-04-15] MEDS: Dexamethasone IV 4 MG/ML VIAL 1 ml VIAL IV SLOW PU SCH ×2 (08:31→20:26)
[2021-04-15] MEDS: Lidocaine PATCH 5% PATCH TRANSDERM SCH (08:32)
[2021-04-15] MEDS: Nystatin TOP POWDER 15 GM BTL TOPICAL SCH ×2 (11:50→20:31)
[2021-04-15] MEDS: Enoxaparin 40 MG/0.4 ML SYR SUBCUT SCH (20:26)
[2021-04-15] MEDS: Lidocaine Patch REMOVE NOTE PATCH OFF SCH (20:31)
[2021-04-16] MEDS: Lactulose 30 ml UDC PO PRN (08:47)
[2021-04-16] MEDS: Polyethylene Glycol 3350 17 GM PACKET PO PRN (08:47)
[2021-04-16] MEDS: Cholecalciferol (VIT D3) 1,000 unit TAB PO SCH (08:48)
[2021-04-16] MEDS: Aspirin EC 81 mg TAB.EC (enteric coated) PO SCH (08:49)
[2021-04-16] MEDS: oxyCODONE SR 20 mg TAB PO SCH (08:50)
[2021-04-16] MEDS: Lidocaine PATCH 5% PATCH TRANSDERM SCH (08:50)
[2021-04-16] MEDS: Dexamethasone IV 4 MG/ML VIAL 1 ml VIAL IV SLOW PU SCH (08:50)
[2021-04-16] MEDS: Nystatin TOP POWDER 15 GM BTL TOPICAL SCH (08:51)
[2021-04-16] MEDS: SPIRIVA Respimat (tiotropium) 2.5 mcg/inh Inhaler INH SCH (10:36)
[2021-04-16 11:32] VITALS: BP 90/52
[2021-04-16] MEDS ORDERED: Senna TAB 8.6 mg TAB PO SCH (21:00)
== END 2021-04-16 15:45 | DRG 477 ==
LOC: ED 13:08 → EDHOLD 13:08 → SUATTDRO 20:20 → SSU 04-03 00:38 → SUATTDRO 04-03 14:44 → SSU 04-06 11:37
PROVIDERS: ADMIT Internal Medicine; ATTEND Internal Medicine

== ENCOUNTER 2021-06-11 13:02 | Inpatient (IN) ==
[2021-06-11 13:48] LABS: ABS Basophils 0.1 10^3/ul (0-0.2); ABS Eosinophils 0.1 10^3/ul (0-0.6); ABS Lymphocytes 2.1 10^3/ul (1.0-4.8); ABS Monocytes 0.8 10^3/ul (0-0.8); ABS Neutrophils 8.1 10^3/ul (1.5-7.7); Eosinophil % 0.9 %; Hematocrit 33 % (35-47); Hemoglobin 10.6 g/dL (12.0-16.0); Lymphocyte % 18.9 %; Mean Corpuscular HGB Conc 32 g/dL (31-36); Mean Corpuscular Hemoglobin 29 pg (27-31); Mean Corpuscular Volume 92 fL (80-97); Mean Platelet Volume 9.9 fL (7.4-10.4); Nucleated Red Blood Cells % 0.3; Platelet Count 248 10^3/uL (150-450); Red Blood Count 3.62 10^6 /uL (3.70-4.87); Red Cell Distribution Width 17 % (10-15); White Blood Count 11.2 10^3/uL (3.5-10.8)
[2021-06-11 13:56] LABS: INR 1.04 (0.86-1.15)
[2021-06-11 14:12] LABS: ALT 12 U/L (7-52); AST 42 U/L (13-39); Albumin 3.8 g/dL (3.2-5.2); Albumin/Globulin Ratio 1.2 (1-3); Alkaline Phosphatase 87 U/L (35-149); Blood Urea Nitrogen 26 mg/dL (6-24); C Reactive Protein 45.67 mg/L (<8.01); CO2 Carbon Dioxide 28 mmol/L (22-32); Calcium 8.9 mg/dL (8.6-10.3); Chloride 101 mmol/L (101-111); Globulin 3.3 g/dL (2-4); Glucose 91 mg/dL (70-100); Sodium 133 mmol/L (135-145); Total Protein 7.1 g/dL (6.4-8.9); eGFR CKD-EPI 85.6 (>60)
[2021-06-11 14:13] LABS: Anion Gap 4 mmol/L (2-11); Potassium 5.3 mmol/L (3.5-5.0); Troponin I 0.03 ng/mL (<0.03)
[2021-06-11] MEDS ORDERED: Iodixanol (CONTRAST) 320 MG/ML 100 ML SDV IV ONE (16:10)
[2021-06-11 16:16] LABS: PCO2 Arterial 70 mmHg (35-45)
[2021-06-11 16:37] LABS: PO2 Arterial 59 mmHg (80-100)
[2021-06-11 18:18] LABS: PCO2 Arterial 61 mmHg (35-45); PO2 Arterial 212 mmHg (80-100)
[2021-06-11] MEDS ORDERED: Lactated Ringers 1000 ml BAG 1,000 ML IV SCH (19:00)
[2021-06-11] MEDS ORDERED: cefTRIAXone 1 gm/50 mL NS BAG 1 GM/50 ML BAG IVPB SCH (20:00)
[2021-06-11] MEDS ORDERED: Albuterol/Ipratropium NEB.SOL (2.5/0.5 MG) 3 ML NEB.SOLN INH PRN (21:50)
[2021-06-11] MEDS ORDERED: Azithromycin 500 mg/250 ml NS 500 MG/250 ML BAG IVPB SCH (22:00)
[2021-06-11] MEDS ORDERED: Dextrose 50% Syringe 50 ml 25 GM/50 ML SYRINGE IV PUSH PRN (22:09)
[2021-06-11] MEDS: NS 0.9% 1000 ml BAG 1,000 ML IV SCH (22:11)
[2021-06-12] MEDS: Heparin 5000 UNITS/ML 1 mL VIAL SUBCUT SCH ×4 (00:38→20:53)
[2021-06-12] MEDS: DOXYcycline 100 MG in NS 0.9% 250 ml 250 ML IVPB SCH ×2 (00:38→11:24)
[2021-06-12 04:20] LABS: Urine Appearance Cloudy; Urine Bilirubin Negative (Negative); Urine Blood Negative (Negative); Urine Color Yellow; Urine Glucose Negative (Negative); Urine Ketones Negative (Negative); Urine Nitrite Negative (Negative); Urine Protein Negative (Negative); Urine Specific Gravity 1.021 (1.002-1.030); Urine Urobilinogen Negative (Negative)
[2021-06-12 04:27] LABS: Urine Bacteria Absent (Absent); Urine Red Blood Cell Trace(0-2/hpf) (Absent); Urine Squamous Epithelial Cell Present (Absent); Urine White Blood Cell 1+(6-10/hpf) (Absent)
[2021-06-12] MEDS ORDERED: Albuterol/Ipratropium NEB.SOL (2.5/0.5 MG) 3 ML NEB.SOLN INH SCH (07:00)
[2021-06-12 07:04] LABS: ABS Basophils 0.1 10^3/ul (0-0.2); ABS Eosinophils 0.5 10^3/ul (0-0.6); ABS Monocytes 1.5 10^3/ul (0-0.8); ABS Neutrophils 5.8 10^3/ul (1.5-7.7); Eosinophil % 4.2 %; Hematocrit 32 % (35-47); Hemoglobin 10.1 g/dL (12.0-16.0); Lymphocyte % 27.4 %; Mean Corpuscular HGB Conc 32 g/dL (31-36); Mean Corpuscular Hemoglobin 30 pg (27-31); Mean Corpuscular Volume 94 fL (80-97); Mean Platelet Volume 9.9 fL (7.4-10.4); Nucleated Red Blood Cells % 0.3; Platelet Count 220 10^3/uL (150-450); Red Blood Count 3.37 10^6 /uL (3.70-4.87); Red Cell Distribution Width 17 % (10-15); White Blood Count 10.8 10^3/uL (3.5-10.8)
[2021-06-12 07:26] LABS: Calcium 8.3 mg/dL (8.6-10.3); Potassium 4.6 mmol/L (3.5-5.0); eGFR CKD-EPI 84.2 (>60)
[2021-06-12] MEDS: Cholecalciferol (VIT D3) 1,000 unit TAB PO SCH (08:06)
[2021-06-12] MEDS: Aspirin EC 81 mg TAB.EC (enteric coated) PO SCH (08:06)
[2021-06-12] MEDS: NS 0.9% 1000 ml BAG 1,000 ML IV SCH (08:08)
[2021-06-12] MEDS: Nystatin TOP POWDER 15 GM BTL TOPICAL SCH ×2 (09:19→20:54)
[2021-06-12] MEDS ORDERED: cefTRIAXone 1 gm/50 mL NS BAG 1 GM/50 ML BAG IV SCH (20:00)
[2021-06-13] MEDS: DOXYcycline 100 MG in NS 0.9% 250 ml 250 ML IVPB SCH (00:03)
[2021-06-13] MEDS: Heparin 5000 UNITS/ML 1 mL VIAL SUBCUT SCH (05:03)
[2021-06-13 05:35] LABS: Hematocrit 31 % (35-47); Hemoglobin 9.8 g/dL (12.0-16.0); Mean Corpuscular HGB Conc 32 g/dL (31-36); Mean Corpuscular Hemoglobin 29 pg (27-31); Mean Corpuscular Volume 92 fL (80-97); Mean Platelet Volume 9.9 fL (7.4-10.4); Platelet Count 253 10^3/uL (150-450); Red Blood Count 3.39 10^6 /uL (3.70-4.87); Red Cell Distribution Width 16 % (10-15); White Blood Count 11.7 10^3/uL (3.5-10.8)
[2021-06-13 05:38] LABS: ABS Basophils 0.1 10^3/ul (0-0.2); ABS Eosinophils 0.2 10^3/ul (0-0.6); ABS Lymphocytes 3.1 10^3/ul (1.0-4.8); ABS Monocytes 0.9 10^3/ul (0-0.8); ABS Neutrophils 7.4 10^3/ul (1.5-7.7); Eosinophil % 1.3 %; Lymphocyte % 26.3 %; Nucleated Red Blood Cells % 0.2
[2021-06-13 05:53] LABS: C Reactive Protein 54.07 mg/L (<8.01); Calcium 8.5 mg/dL (8.6-10.3); Potassium 4.7 mmol/L (3.5-5.0); eGFR CKD-EPI 102.4 (>60)
[2021-06-13] MEDS: Aspirin EC 81 mg TAB.EC (enteric coated) PO SCH (09:16)
[2021-06-13] MEDS: Cholecalciferol (VIT D3) 1,000 unit TAB PO SCH (09:16)
[2021-06-13] MEDS: Nystatin TOP POWDER 15 GM BTL TOPICAL SCH (09:17)
[2021-06-13 11:28] VITALS: BP 100/52
== END 2021-06-13 11:50 | disposition left against medical advice (07) | DRG 193 ==
LOC: ED 13:02 → EDHOLD 21:54 → MEDTELE 23:22
PROVIDERS: ADMIT Internal Medicine; ATTEND Internal Medicine

== ENCOUNTER 2022-03-11 09:57 | Observation (INO) ==
[2022-03-11] MEDS ORDERED: Acetaminophen IV 1 GM/100ML 1,000 MG/100 ML BAG IV ONE (11:45)
[2022-03-11 13:28] LABS: ABS Basophils 0.1 10^3/ul (0-0.2); ABS Eosinophils 0.2 10^3/ul (0-0.6); ABS Lymphocytes 2.8 10^3/ul (1.0-4.8); ABS Monocytes 0.9 10^3/ul (0-0.8); ABS Neutrophils 5.6 10^3/ul (1.5-7.7); Eosinophil % 2.3 %; Hematocrit 42 % (35-47); Hemoglobin 13.2 g/dL (12.0-16.0); Mean Corpuscular HGB Conc 32 g/dL (31-36); Mean Corpuscular Hemoglobin 31 pg (27-31); Mean Corpuscular Volume 97 fL (80-97); Mean Platelet Volume 10.2 fL (7.4-10.4); Nucleated Red Blood Cells % 0.1; Platelet Count 164 10^3/uL (150-450); Red Blood Count 4.31 10^6 /uL (3.70-4.87); Red Cell Distribution Width 17 % (10-15); White Blood Count 9.6 10^3/uL (3.5-10.8)
[2022-03-11 14:45] LABS: Albumin 3.6 g/dL (3.2-5.2); Albumin/Globulin Ratio 1.9 (1-3); C Reactive Protein 4.4 mg/L (<8.01); Calcium 8.3 mg/dL (8.6-10.3); Globulin 1.9 g/dL (2-4); Potassium 4.1 mmol/L (3.5-5.0); Total Bilirubin 0.3 mg/dL (0.2-1.0); Total Protein 5.5 g/dL (6.4-8.9); eGFR CKD-EPI 93.4 (>60)
[2022-03-11] MEDS ORDERED: Iodixanol (CONTRAST) 320 MG/ML 100 ML SDV IV ONE (15:04)
[2022-03-11] MEDS ORDERED: Ondansetron 4 mg VIAL 2 MG/ML 2 ml VIAL IV PRN (17:31)
[2022-03-11] MEDS ORDERED: Albuterol/Ipratropium NEB.SOL (2.5/0.5 MG) 3 ML NEB.SOLN INH PRN (18:44)
[2022-03-11] MEDS ORDERED: cefTRIAXone 1 gm/50 mL D5W 1 GM/50 ML BAG IV SCH (18:45)
[2022-03-11] MEDS ORDERED: Azithromycin 500 mg/250 ml NS 500 MG/250 ML BAG IVPB SCH ×2 (19:00→23:00)
[2022-03-11] MEDS: Morphine ER 15 mg TAB ** extended release PO SCH (22:30)
[2022-03-11] MEDS ORDERED: Enoxaparin 40 MG/0.4 ML SYR SUBCUT SCH (23:00)
[2022-03-12 04:53] LABS: ABS Lymphocytes 1.1 10^3/ul (1.0-4.8); ABS Monocytes 0.2 10^3/ul (0-0.8); ABS Neutrophils 5.9 10^3/ul (1.5-7.7); Eosinophil % 0.1 %; Hematocrit 43 % (35-47); Hemoglobin 13.7 g/dL (12.0-16.0); Lymphocyte % 15.1 %; Mean Corpuscular HGB Conc 32 g/dL (31-36); Mean Corpuscular Hemoglobin 31 pg (27-31); Mean Corpuscular Volume 96 fL (80-97); Nucleated Red Blood Cells % 0.3; Platelet Count 159 10^3/uL (150-450); Red Cell Distribution Width 17 % (10-15); White Blood Count 7.2 10^3/uL (3.5-10.8)
[2022-03-12 05:15] LABS: Calcium 8.3 mg/dL (8.6-10.3); Potassium 4.1 mmol/L (3.5-5.0); eGFR CKD-EPI 97.9 (>60)
[2022-03-12 07:41] VITALS: BP 144/63
[2022-03-12] MEDS ORDERED: Aspirin EC 81 mg TAB.EC (enteric coated) PO SCH (09:00)
[2022-03-12] MEDS ORDERED: Morphine ER 30 mg TAB ** extended release PO SCH (09:00)
[2022-03-12] MEDS: Morphine ER 15 mg TAB ** extended release PO SCH (10:12)
[2022-03-12] MEDS ORDERED: [UNRECOGNIZED DRUG - OTHER] PO SCH (21:00)
== END 2022-03-12 11:35 | disposition left against medical advice (07) ==
LOC: EDHOLD 09:57 → ED 09:57 → MED 20:20
PROVIDERS: ADMIT Internal Medicine; ATTEND Internal Medicine

== ENCOUNTER 2023-01-27 08:16 | Inpatient (IN) ==
[2023-01-27] MEDS ORDERED: NS 0.9% 1000 ml BAG 1,000 ML IV ONE (09:34)
[2023-01-27 10:03] LABS: ABS Lymphocytes 2.3 10^3/uL (1.0-4.8); ABS Monocytes 0.6 10^3/uL (0.0-0.9); ABS Neutrophils 3.8 10^3/uL (1.5-7.6); Eosinophil % 0.5 %; Hematocrit 32.3 % (35-45); Hemoglobin 10.6 g/dL (11.5-14.3); Lymphocyte % 33.6 %; Mean Corpuscular Hemoglobin 29.2 pg (27-33); Mean Corpuscular Hgb Conc 32.8 g/dL (31-36); Mean Platelet Volume 9.8 fL (7.5-11.2); Platelet Count 285 10^3/uL (150-450); Red Blood Count 3.63 10^6/uL (3.63-4.92); Red Cell Distribution Width 16.1 % (12-17); White Blood Count 6.8 10^3/uL (3.8-11.8)
[2023-01-27] MEDS: HYDROmorphone 0.5 MG/0.5 ML SYRINGE IV SLOW PU PRN ×6 (10:05→22:49)
[2023-01-27 10:15] LABS: Albumin 3.3 g/dL (3.2-5.2); Albumin/Globulin Ratio 1.2 (1-3); Calcium 8.3 mg/dL (8.6-10.3); Creatinine, Serum 0.73 mg/dL (0.51-0.95); Globulin 2.7 g/dL (2-4); Magnesium 1.5 mg/dL (1.9-2.7); Potassium 4.1 mmol/L (3.5-5.0); Total Bilirubin 0.3 mg/dL (0.2-1.0); eGFR CKD-EPI 87.3 (>60)
[2023-01-27 10:17] LABS: INR 1.05 (0.83-1.13)
[2023-01-27 10:29] LABS: Urine Appearance Cloudy; Urine Color Yellow
[2023-01-27 10:30] LABS: Urine Bilirubin Negative (Negative); Urine Blood 1+ (Negative); Urine Glucose Negative (Negative); Urine Ketones Trace (Negative); Urine Nitrite Positive (Negative); Urine Protein 1+(30 mg/dL) (Negative); Urine Specific Gravity 1.018 (1.002-1.030); Urine Urobilinogen Negative (Negative)
[2023-01-27 10:36] LABS: Urine Bacteria 1+ (Absent); Urine Red Blood Cell Trace(0-2/hpf) (Absent); Urine Squamous Epithelial Cell Present (Absent); Urine White Blood Cell 1+(6-10/hpf) (Absent)
[2023-01-27 11:04] LABS: TSH Ultra Thyroid Stim Horm 0.81 mcIU/mL (0.34-5.60)
[2023-01-27] MEDS ORDERED: Iohexol 350 (CONTRAST) 500 ML MDV IV ONE (11:10)
[2023-01-27] MEDS ORDERED: PHENYTOIN IVPB ONE (13:12)
[2023-01-27] MEDS ORDERED: oxyCODONE SR 20 mg TAB PO ONE (16:09)
[2023-01-27] MEDS ORDERED: HYDROmorphone 0.5 MG/0.5 ML SYRINGE IM ONE (17:46)
[2023-01-27] MEDS ORDERED: Phenytoin IV 1,000 MG in NS 0.9% 250 ml 180 ML IV ONE (18:48)
[2023-01-27] MEDS ORDERED: Fosphenytoin 1,000 MG in NS 0.9% 50 ML 50 ML IVPB ONE (21:00)
[2023-01-27] MEDS ORDERED: Albuterol/Ipratropium NEB.SOL (2.5/0.5 MG) 3 ML NEB.SOLN INH PRN (21:50)
[2023-01-27] MEDS ORDERED: Cholecalciferol (VIT D3) 1,000 unit TAB PO SCH (22:00)
[2023-01-27] MEDS ORDERED: Magnesium Sulfate IV 3 GM in NS 0.9% 100 ml BAG 100 ML IVPB ONE (22:36)
[2023-01-28] MEDS: CABOZANTINIB 20 MG PO SCH ×2 (00:07→20:30)
[2023-01-28] MEDS: HYDROmorphone 1 MG/1 ML SYRINGE IV SLOW PU PRN ×5 (02:13→16:57)
[2023-01-28] MEDS ORDERED: Lactated Ringers 1000 ml BAG 1,000 ML IV ONE ×2 (02:16→18:50)
[2023-01-28 05:45] LABS: ABS Eosinophils 0.1 10^3/uL (0.0-0.5); ABS Lymphocytes 1.9 10^3/uL (1.0-4.8); ABS Monocytes 0.7 10^3/uL (0.0-0.9); ABS Neutrophils 3.7 10^3/uL (1.5-7.6); ABS Nucleated RBC 0.01 10^3/ul; Eosinophil % 2.3 %; Hematocrit 29.4 % (35-45); Hemoglobin 9.8 g/dL (11.5-14.3); Lymphocyte % 28.9 %; Mean Corpuscular Hemoglobin 29.7 pg (27-33); Mean Corpuscular Hgb Conc 33.4 g/dL (31-36); Mean Corpuscular Volume 88.7 fL (80-97); Mean Platelet Volume 9.9 fL (7.5-11.2); Nucleated Red Blood Cells % 0.1 /100 WBC (0.0-0.4); Platelet Count 252 10^3/uL (150-450); Red Blood Count 3.31 10^6/uL (3.63-4.92); Red Cell Distribution Width 16.1 % (12-17); White Blood Count 6.5 10^3/uL (3.8-11.8)
[2023-01-28] MEDS ORDERED: cefTRIAXone 1 gm/50 mL D5W 1 GM/50 ML BAG IV SCH (06:00)
[2023-01-28 06:02] LABS: Creatinine, Serum 0.82 mg/dL (0.51-0.95)
[2023-01-28 07:26] LABS: Magnesium 2.1 mg/dL (1.9-2.7)
[2023-01-28] MEDS: Enoxaparin 40 MG/0.4 ML SYR SUBCUT SCH (08:24)
[2023-01-28] MEDS ORDERED: Aspirin EC 81 mg TAB.EC (enteric coated) PO SCH (09:00)
[2023-01-28] MEDS ORDERED: Lactated Ringers 1000 ml BAG 1,000 ML IV SCH (10:00)
[2023-01-28] MEDS ORDERED: Lactated Ringers 1000 ml BAG 500 ML IV ONE (11:23)
[2023-01-28] MEDS: Morphine ER 30 mg TAB ** extended release PO SCH (20:28)
[2023-01-28] MEDS ORDERED: NS 0.9% 500 ml BAG 500 ML IV ONE (20:32)
[2023-01-29] MEDS: HYDROmorphone 1 MG/1 ML SYRINGE IV SLOW PU PRN ×4 (02:18→20:02)
[2023-01-29] MEDS: Enoxaparin 40 MG/0.4 ML SYR SUBCUT SCH ×2 (07:08→07:30)
[2023-01-29] MEDS: Senna TAB 8.6 mg TAB PO PRN (07:29)
[2023-01-29] MEDS: Morphine ER 15 mg TAB ** extended release PO SCH (07:29)
[2023-01-29] MEDS: Polyethylene Glycol 3350 17 GM PACKET PO PRN (09:02)
[2023-01-29] MEDS: Morphine ER 30 mg TAB ** extended release PO SCH (22:15)
[2023-01-29] MEDS: CABOZANTINIB 20 MG PO SCH (22:16)
[2023-01-30] MEDS: HYDROmorphone 1 MG/1 ML SYRINGE IV SLOW PU PRN ×6 (01:55→21:52)
[2023-01-30] MEDS: Morphine ER 15 mg TAB ** extended release PO SCH (07:43)
[2023-01-30] MEDS: Senna TAB 8.6 mg TAB PO PRN (07:44)
[2023-01-30] MEDS: Enoxaparin 40 MG/0.4 ML SYR SUBCUT SCH (07:44)
[2023-01-30] MEDS ORDERED: Benzocaine/Menthol LOZ PO PRN (12:32)
[2023-01-30] MEDS ORDERED: Benzocaine (plain) Lozenge 15 MG PO PRN (13:23)
[2023-01-30] MEDS: Morphine ER 30 mg TAB ** extended release PO SCH (20:46)
[2023-01-30] MEDS: CABOZANTINIB 20 MG PO SCH (20:47)
[2023-01-31] MEDS: HYDROmorphone 1 MG/1 ML SYRINGE IV SLOW PU PRN ×7 (01:33→22:57)
[2023-01-31] MEDS: Enoxaparin 40 MG/0.4 ML SYR SUBCUT SCH (08:17)
[2023-01-31] MEDS: Morphine ER 15 mg TAB ** extended release PO SCH (08:17)
[2023-01-31] MEDS ORDERED: NS 0.9% 500 ml BAG 500 ML IV ONE (10:23)
[2023-01-31] MEDS ORDERED: CABOZANTINIB 20 MG PO SCH (17:15)
[2023-01-31] MEDS ORDERED: Naloxone Nasal Spray 4 MG/0.1 ML NASAL.SPR INTRANASAL PRN (19:02)
[2023-02-01] MEDS: HYDROmorphone 1 MG/1 ML SYRINGE IV SLOW PU PRN ×5 (06:13→22:18)
[2023-02-01] MEDS ORDERED: Morphine ER 30 mg TAB ** extended release PO SCH (07:30)
[2023-02-01] MEDS: Enoxaparin 40 MG/0.4 ML SYR SUBCUT SCH (09:33)
[2023-02-01] MEDS: Polyethylene Glycol 3350 17 GM PACKET PO PRN (11:21)
[2023-02-01] MEDS: Senna TAB 8.6 mg TAB PO PRN (11:23)
[2023-02-02] MEDS: HYDROmorphone 1 MG/1 ML SYRINGE IV SLOW PU PRN ×6 (02:00→22:36)
[2023-02-02] MEDS: Enoxaparin 40 MG/0.4 ML SYR SUBCUT SCH (09:44)
[2023-02-03] MEDS: HYDROmorphone 1 MG/1 ML SYRINGE IV SLOW PU PRN ×4 (05:25→20:24)
[2023-02-03] MEDS: Enoxaparin 40 MG/0.4 ML SYR SUBCUT SCH (08:48)
[2023-02-03] MEDS: Magnesium Hydroxide LIQ 30 ML UDC PO PRN (09:39)
[2023-02-04] MEDS: HYDROmorphone 1 MG/1 ML SYRINGE IV SLOW PU PRN ×5 (04:41→23:00)
[2023-02-04] MEDS: Enoxaparin 40 MG/0.4 ML SYR SUBCUT SCH (08:52)
[2023-02-04] MEDS: Magnesium Hydroxide LIQ 30 ML UDC PO PRN (11:40)
[2023-02-05] MEDS: HYDROmorphone 1 MG/1 ML SYRINGE IV SLOW PU PRN ×3 (01:59→11:33)
[2023-02-05] MEDS: Senna TAB 8.6 mg TAB PO PRN (10:36)
[2023-02-05] MEDS: Enoxaparin 40 MG/0.4 ML SYR SUBCUT SCH (10:39)
[2023-02-05] MEDS: Benzocaine/Menthol LOZ PO PRN (23:18)
[2023-02-06] MEDS: HYDROmorphone 1 MG/1 ML SYRINGE IV SLOW PU PRN ×2 (08:31→22:05)
[2023-02-06] MEDS: Enoxaparin 40 MG/0.4 ML SYR SUBCUT SCH (08:41)
[2023-02-07] MEDS: HYDROmorphone 1 MG/1 ML SYRINGE IV SLOW PU PRN ×4 (06:28→21:42)
[2023-02-07] MEDS: Enoxaparin 40 MG/0.4 ML SYR SUBCUT SCH (08:35)
[2023-02-07] MEDS ORDERED: NS 0.9% 500 ml BAG 500 ML IV ONE (10:48)
[2023-02-07] MEDS: Benzocaine/Menthol LOZ PO PRN ×2 (11:01→19:27)
[2023-02-08] MEDS: HYDROmorphone 1 MG/1 ML SYRINGE IV SLOW PU PRN ×3 (05:11→14:12)
[2023-02-08] MEDS: Enoxaparin 40 MG/0.4 ML SYR SUBCUT SCH (08:37)
[2023-02-09] MEDS: HYDROmorphone 1 MG/1 ML SYRINGE IV SLOW PU PRN ×5 (03:29→20:04)
[2023-02-09] MEDS: Enoxaparin 40 MG/0.4 ML SYR SUBCUT SCH (08:15)
[2023-02-09 08:46] LABS: Rapid COVID-19 Molecular Undetected (Undetected)
[2023-02-09] MEDS ORDERED: Morphine ER 30 mg TAB ** extended release PO ONE ×2 (21:00→22:00)
[2023-02-10] MEDS: Morphine ER 30 mg TAB ** extended release PO SCH ×3 (06:26→22:47)
[2023-02-10] MEDS: Morphine ER 15 mg TAB ** extended release PO SCH ×3 (06:26→22:47)
[2023-02-10] MEDS: Enoxaparin 40 MG/0.4 ML SYR SUBCUT SCH (08:00)
[2023-02-10] MEDS: HYDROmorphone 1 MG/1 ML SYRINGE IV SLOW PU PRN (08:00)
[2023-02-11] MEDS: Morphine ER 30 mg TAB ** extended release PO SCH ×3 (05:24→21:49)
[2023-02-11] MEDS: Morphine ER 15 mg TAB ** extended release PO SCH ×3 (05:25→21:49)
[2023-02-11] MEDS: Enoxaparin 40 MG/0.4 ML SYR SUBCUT SCH (07:50)
[2023-02-11] MEDS: Senna TAB 8.6 mg TAB PO PRN (21:49)
[2023-02-12] MEDS: Morphine ER 30 mg TAB ** extended release PO SCH ×3 (06:32→18:14)
[2023-02-12] MEDS: Morphine ER 15 mg TAB ** extended release PO SCH (06:33)
[2023-02-12] MEDS: Enoxaparin 40 MG/0.4 ML SYR SUBCUT SCH (09:04)
[2023-02-12] MEDS: Benzocaine/Menthol LOZ PO PRN (09:15)
[2023-02-13] MEDS: Morphine ER 30 mg TAB ** extended release PO SCH (02:20)
[2023-02-13] MEDS: Benzocaine/Menthol LOZ PO PRN ×2 (04:36→20:29)
[2023-02-13] MEDS: Senna TAB 8.6 mg TAB PO PRN ×2 (08:41→20:41)
[2023-02-13] MEDS: Enoxaparin 40 MG/0.4 ML SYR SUBCUT SCH (08:41)
[2023-02-13] MEDS: Morphine ER 15 mg TAB ** extended release PO SCH ×2 (11:00→20:30)
[2023-02-13] MEDS: Magnesium Hydroxide LIQ 30 ML UDC PO PRN (20:41)
[2023-02-14] MEDS: Morphine ER 15 mg TAB ** extended release PO SCH ×4 (06:26→23:54)
[2023-02-14] MEDS: Enoxaparin 40 MG/0.4 ML SYR SUBCUT SCH (09:06)
[2023-02-15 06:28] VITALS: BP 123/66
[2023-02-15] MEDS: Morphine ER 15 mg TAB ** extended release PO SCH (09:51)
[2023-02-15] MEDS: Enoxaparin 40 MG/0.4 ML SYR SUBCUT SCH (09:53)
== END 2023-02-15 10:55 | DRG 74 ==
LOC: EDHOLD 08:16 → ED 08:16 → MED 14:46 → SUATTDRO 19:47 → MED 22:06 → SUATTDRO 01-29 14:01
PROVIDERS: ADMIT Student in an Organized Health Care Education/Training Program; ATTEND Internal Medicine